=== PATIENT | female | born 1975 | race Caucasian/White ===

== ENCOUNTER 2021-06-24 16:29 | Inpatient (IN) | payer MEDICARE ==
[~2021-06-24] VITALS: Ht 157.5 cm; Wt 143.1 kg
[~2021-06-24 16:29] MED LIST: ALBU2.5V8; ALBU2.5V8 IH; BENZ100C PO; CETI10TA16 PO; ESTR0.45 PO; FERR325C PO; FLUO10TA; FLUO20TA11 PO; FLUT16SP21; FLUT1DIS3 IH; FLUT9.9S NS; FURO20TA3 PO; GLUC1KIT IM; INSU100C4 SQ; INSU100I13 SQ; INSU100V31; INSU100V8; IPRA3AMP29 NEB; LEVO500T59 PO; MONT10TA80 PO; NYST15CR2 TOP; NYST60PO TP; PRED-220; PRED-220 PO; PRED20TA PO; PRED5TAB PO; RANI150C PO; RANI150T2 PO; TERB30CR TP
[2021-06-24] MEDS ORDERED: IV NORMAL SALINE 1,000ML 1,000 ML IV ONE ×2 (18:15→18:45)
--- NOTE | 2021-06-24 18:39 | RAD ---
EXAM: AP View of the chest DATE: 06/24/2021 6:18 PM INDICATION: Reason: drowziness / Spl. Instructions: / History: COMPARISON: No Prior FINDINGS: The heart is not enlarged. Diffuse bilateral parenchymal airspace opacities likely volume loss. Pneumonia or pulmonary edema. Tr nicky pleural effusions. No pneumothorax. IMPRESSION: 1. Diffuse bilateral perihilar and lung base airspace opacities and trace pleural effusions may be s een with pulmonary edema or multifocal consolidative process, such as pneumonia. Electronically signed by: Krishan De Anda MD (06/24/2021 6:36 PM) [facility]
[2021-06-24 18:43] LABS: BASO # 0.1 x10^3/uL (0.0-0.2); BASO % 1 % (0-3); EOS % 0 % (0-3); LYMPH # 0.8 x10^3/uL (1.0-4.8); LYMPH % 9 % (24-48); MEAN CORPUSCULAR HEMOGLOBIN 32 pg (25-35); MEAN CORPUSCULAR HGB CONC 33 g/dL (31-37); MEAN CORPUSCULAR VOLUME 97 fL (79-100); MONO # 0.9 x10^3/uL (0.0-1.1); MONO % 10 % (0-9); NEUT # 7.5 x10^3uL (1.8-7.7); NEUT % 81 % (31-73); PLATELET COUNT 284 x10^3/uL (140-400); RED CELL DISTRIBUTION WIDTH 15.5 % (11.5-14.5); WHITE BLOOD COUNT 9.3 x10^3/uL (4.0-11.0)
[2021-06-24 18:45] LABS: CALCIUM 8.7 mg/dL (8.5-10.1); CREATININE 0.8 mg/dL (0.6-1.0); GFR 77.2; POTASSIUM 4.4 mmol/L (3.5-5.1)
[2021-06-24 18:52] LABS: ALBUMIN 3.1 g/dL (3.4-5.0); ALBUMIN/GLOBULIN RATIO 0.8 (1.0-1.7); MAGNESIUM 2.2 mg/dL (1.8-2.4); TOTAL BILIRUBIN 0.6 mg/dL (0.2-1.0); TOTAL PROTEIN 7.2 g/dL (6.4-8.2)
--- NOTE | 2021-06-24 19:24 | PHYS DOC ---
Past History Past Medical History: Asthma, Diabetes, Other Additional Past Medical Histor: DM I, LYMPHEDEMA, DOWNS SYNDROME, CHROHNS, CELIAC DISEASE (TAMMY GORDON APRN) Past Surgical History: Hysterectomy, Oophorectomy (TAMMY GORDON APRN) Smoking: Non-smoker Alcohol Use: None Drug Use: None (TAMMY GORDON APRN) General Adult EDM: Chief Complaint: MULTIPLE COMPLAINTS HPI: HPI: Patient is a 46-year-old female presents with fever, cough, drowsiness since this morning. Mom states "I have not been able to get her to eat much all day because she is too sleepy". "She does have asthma and she has been coughing a lot more lately today". Mom reports highest fever at home was 101. Patient is alert and oriented. Denying pain, shortness of breath. Denies urinary sy mptoms. History of asthma, diabetes, Down syndrome (TAMMY GORDON APRN) Review of Systems: Review of Systems: Constitutional: Denies fever or chills Eyes: Denies change in visual acuity HENT: Denies nasal congestion or sore throat Respiratory: Denies cough or shortness of breath Cardiovascular: Denies chest pain or edema GI: Denies abdominal pain, nausea, vomiting, bloody stools or diarrhea : Denies dysuria Musculoskeletal: Denies back pain or joint pain Integument: Denies rash Neurologic: Denies headache, focal weakness or sensory changes Endocrine: Denies polyuria or polydipsia Lymphatic: Denies swollen glands Psychiatric: Denies depression or anxiety (TAMMY GORDON APRN) Current Medications: Current Meds: Current Medications Medications (Trade) Dose Ordered Sig/Harlan Start Time Stop Time Status Last Admin Dose Admin Sodium Chloride 1,000 ml @ 1,000 mls/hr 1X ONCE 06/24/21 18:45 06/24/21 19:44 06/24/21 18:45 1,000 MLS/HR (TAMMY GORDON APRN) Allergies: Allergies: Allergies Coded Allergies Type Severity Reaction Last Updated Verified Sulfa (Sulfonamide Antibiotics) Allergy Intermediate 05/02/14 Yes codeine Allergy Intermediate 05/02/14 Yes strawberry Allergy Intermediate 05/02/14 Yes adhesive Allergy Unknown 06/24/21 Yes gluten Allergy Unknown 06/24/21 Yes (GORDON,TAMMY [employer]) Physical Exam: PE: Constitutional: Well developed, well nourished, no acute distress, drowsiness HENT: Normocephalic, atraumatic, bilateral external ears normal, oropharynx moist, no oral exudates, nose normal. [] Eyes: PERRLA, EOMI, conjunctiva normal, no discharge. [] Neck: Normal range of motion, no tenderness, supple, no stridor. [] Cardiovascular:Heart rate regular rhythm, no murmur [] Lungs & Thorax: Bilateral breath sounds clear to auscultation [] Abdomen: Bowel sounds normal, soft, no tenderness, no masses, no pulsatile masses. [] Skin: Warm, dry, no erythema, no rash. [] Back: No tenderness, no CVA tenderness. [] Extremities: No tenderness, no cyanosis, no clubbing, ROM intact, no edema. [] Neurologic: Alert and oriented X 3, normal motor function, normal sensory function, no focal deficits noted. [] Psychologic: Affect normal, judgement normal, mood normal. [] (TAMMY GORDON P[employer]ER) Current Patient Data: Labs: Laboratory Tests Test 06/24/21 18:13 06/24/21 18:20 Glucose (Fingerstick) 349 mg/dL (70-99) H White Blood Count 9.3 x10^3/uL (4.0-11.0) Red Blood Count 3.70 x10^6/uL (3.50-5.40) Hemoglobin 12.0 g/dL (12.0-15.5) Hematocrit 36.0 % (36.0-47.0) Mean Corpuscular Volume 97 fL (79-100) Mean Corpuscular Hemoglobin 32 pg (25-35) Mean Corpuscular Hemoglobin Concent 33 g/dL (31-37) Red Cell Distribution Width 15.5 % (11.5-14.5) H Platelet Count 284 x10^3/uL (140-400) Neutrophils (%) (Auto) 81 % (31-73) H Lymphocytes (%) (Auto) 9 % (24-48) L Monocytes (%) (Auto) 10 % (0-9) H Eosinophils (%) (Auto) 0 % (0-3) Basophils (%) (Auto) 1 % (0-3) Neutrophils # (Auto) 7.5 x10^3uL (1.8-7.7) Lymphocytes # (Auto) 0.8 x10^3/uL (1.0-4.8) L Monocytes # (Auto) 0.9 x10^3/uL (0.0-1.1) Eosinophils # (Auto) 0.0 x10^3/uL (0.0-0.7) Basophils # (Auto) 0.1 x10^3/uL (0.0-0.2) Sodium Level 134 mmol/L (136-145) L Potassium Level 4.4 mmol/L (3.5-5.1) Chloride Level 97 mmol/L (98-107) L Carbon Dioxide Level 31 mmol/L (21-32) Anion Gap 6 (6-14) Blood Urea Nitrogen 12 mg/dL (7-20) Creatinine 0.8 mg/dL (0.6-1.0) Estimated GFR (Cockcroft-Gault) 77.2 BUN/Creatinine Ratio 15 (6-20) Glucose Level 323 mg/dL (70-99) H Calcium Level 8.7 mg/dL (8.5-10.1) Magnesium Level 2.2 mg/dL (1.8-2.4) Total Bilirubin 0.6 mg/dL (0.2-1.0) Aspartate Amino Transferase (AST) 13 U/L (15-37) L Alanine Aminotransferase (ALT) 22 U/L (14-59) Alkaline Phosphatase 88 U/L (46-116) Total Protein 7.2 g/dL (6.4-8.2) Albumin 3.1 g/dL (3.4-5.0) L Albumin/Globulin Ratio 0.8 (1.0-1.7) L Vital Signs: Vital Signs Date Time Temp Pulse Resp B/P (MAP) Pulse Ox O2 Delivery O2 Flow Rate FiO2 06/24/21 17:50 98.5 75 20 120/75 (90) 84 Room Air (TAMMY GORDON APRN) EKG: EKG: [] (TAMMY GORDON APRN) Radiology/Procedures: Radiology/Procedures: []EXAM: AP View of the chest DATE: 06/24/2021 6:18 PM INDICATION: Reason: drowziness / Spl. Instructions: / History: COMPARISON: No Prior FINDINGS: The heart is not enlarged. Diffuse bilateral parenchymal airspace opacities likely volume loss. Pneumonia or pulmonary edema. Trace pleural effusions. No pneumothorax. IMPRESSION: 1. Diffuse bilateral perihilar and lung base airspace opacities and trace pleural effusions may be seen with pulmonary edema or multifocal consolidative process, such as pneumonia. Electronically signed by: Krishan De Anda MD (06/24/2021 6:36 PM) [facility] (TAMMY GORDON APRN) Heart Score: C/O Chest Pain: No Risk Factors: Risk Factors: DM, Current or recent (<one month) smoker, HTN, HLP, family history of CAD, obesity. Risk Scores: Score 0 - 3: 2.5% MACE over next 6 weeks - Discharge Home Score 4 - 6: 20.3% MACE over next 6 weeks - Admit for Clinical Observation Score 7 - 10: 72.7% MACE over next 6 weeks - Early Invasive Strategies (TAMMY GORDON APRN) Course & Med Decision Making: Course & Med Decision Making Pertinent Labs and Imaging studies reviewed. (See chart for details) [] 46-year-old female presents with fever, cough and drowsiness since this morning. Mom reports patient's been sleeping all day and acting very drowsy. Patient is alert and oriented. Mom does report fever and cough at home. Chest x-ray ordered to rule out pneumonia. Blood sugar was 347. Patient given 2 L NS bolus. Mom states is not abnormal for her blood sugar to be within that range. Denies patient ever being hospitalized for complications of diabetes, or asthma. Patient was placed on 2 L nasal cannula on arrival due to O2 sats mid 80s. After patient was placed on oxygen, O2 sats are mid 90s. Patient does not currently use oxygen at home. Chest x-ray shows pneumonia. WBC 9.3. Patient much more alert after fluids administered. Discussed results with mom. Recommended patient be admitted due to hypoxia and pneumonia. Discussed with Dr. Conklin. Dr. Conklin agreed to admit patient to telemetry. (TAMMY GORDON APRN) Course & Med Decision Making Did not see or evaluate patient. Did not discuss patient with PHARMACY SERVICES REPRESENTATIVE. Agree with PHARMACY SERVICES REPRESENTATIVE's work-up and disposition per note. (JUAN COON MD) Dragon Disclaimer: Dragon Disclaimer: This electronic medical record was generated, in whole or in part, using a voice recognition dictation system. (TAMMY GORDON APRN) Departure Departure: Impression: Primary Impression: Pneumonia Qualified Codes: J18.9 - Pneumonia, unspecified organism Additional Impression: Hypoxia Disposition: ADMITTED INPATIENT Admitting Physician: Ashvin Alberto (TAMMY GORDON APRN) Condition: STABLE Referrals: ASHVIN ALBERTO MD (PCP) TAMMY GORDON APRN Jun 24, 2021 19:23 JUAN COON MD Jun 24, 2021 22:02
[2021-06-24] MEDS ORDERED: DEXAMETHASONE SOD PHOS 10 MG/ML VIAL. IV ONE (20:15)
[2021-06-24] MEDS ORDERED: INSULIN REGULAR 100 UNIT/ML 3ML VIAL. IV ONE (20:15)
[2021-06-24] MEDS ORDERED: cefTRIAXone SODIUM 1 GM VIAL ONE (20:21)
[2021-06-24] MEDS ORDERED: IV NORMAL SALINE 50ML 50 ML ONE (20:21)
--- NOTE | 2021-06-24 21:12 | EKG ---
[address] [address] Test Date: 2021-06-24 Test Time: 20:58:42 Pat Name: ROMEO GALLARDO Department: Room: 119 A Gender: F Multimedia Specialist: [place] : 1975 Requested By: TAMMY GORDON Order Number: [id number] Reading MD: Roc Sun MD Measurements Intervals [place] Rate: 81 P: 62 NC: 136 QRS: 68 QRSD: 74 T: -4 QT: 382 QTc: 444 Interpretive Statements SINUS RHYTHM NON-SPECIFIC ST/T CHANGES Electronically Signed On 06-29-2021 11:48:20 CDT by Roc Sun MD
[2021-06-24 21:16] LABS: COLOR,URINE YELLOW
[2021-06-24 21:17] LABS: BACTERIA,URINE 0 /HPF (0-FEW); BILIRUBIN,URINE NEG (NEG); CLARITY,URINE CLEAR; GLUCOSE,URINE >=1000 mg/dL (NEG); NITRITE,URINE NEG (NEG); RBC,URINE 0 /HPF (0-2); SQUAMOUS EPITHELIAL CELL,UR MOD /LPF; UROBILINOGEN,URINE 0.2 mg/dL (0.2 mg/dL); WBC,URINE 0 /HPF (0-4)
--- NOTE | 2021-06-24 21:48 | NUR ---
The patient, ROMEO GALLARDO, 46 y/o, F admitted by ASHVIN ALBERTO MD, was given written information regarding hospital policies, unit procedures and contact persons. Valuables were checked and logged. Call light in reach. Mom at bedside.
[2021-06-24 22:09] VITALS: BP 123/74
[2021-06-24] MEDS: IV NORMAL SALINE 1,000ML 1,000 ML IV SCH (22:15)
[2021-06-24 22:19] LABS: INFLUENZA A PATIENT NEGATIVE (NEGATIVE); INFLUENZA B PATIENT NEGATIVE (NEGATIVE)
[2021-06-24 23:00] VITALS: BP 126/68
[2021-06-24] MEDS ORDERED: DEXTROSE 50% 25 GM / 50ML DISP.SYRIN. IV PRN (23:00)
[2021-06-24] MEDS ORDERED: AZITHROMYCIN 250 MG TABLET. PO ONE (23:00)
[2021-06-24] MEDS ORDERED: GABA100C6 PO (23:01)
[2021-06-24] MEDS: INSULIN GLARGINE SYRINGE. SQ SCH (23:26)
[2021-06-25 05:00] VITALS: BP 137/78
[2021-06-25] MEDS ORDERED: NON FORMULARY ITEM (Insulin Aspart (Novolog) 0 UNIT) SQ SCH (07:30)
[2021-06-25] MEDS: INSULIN LISPRO 300 UNITS/3 ML VIAL. SQ SCH ×3 (08:14→17:00)
[2021-06-25] MEDS: FERROUS SULFATE 325 MG TABLET. PO SCH (08:16)
[2021-06-25] MEDS: FLUTICASONE/VILANTEROL 200/25 INHALER. INH SCH (08:53)
[2021-06-25] MEDS: FLUTICASONE 50MCG/NASAL SPRAY 16GM BOTTLE. NS SCH (08:54)
[2021-06-25] MEDS: LACTOBACILLUS RHAMNOSUS GG 1 CAPSULE. PO SCH ×2 (08:55→20:51)
[2021-06-25] MEDS: MONTELUKAST 10 MG TABLET. PO SCH (08:56)
[2021-06-25] MEDS: FAMOTIDINE 20 MG TABLET PO SCH ×2 (08:56→20:51)
[2021-06-25] MEDS: GABAPENTIN 100 MG CAPSULE. PO SCH (08:57)
[2021-06-25] MEDS: ESTROGENS, CONJUGATED 0.3 MG TABLET PO SCH (08:57)
[2021-06-25] MEDS: NYSTATIN TOPICAL POWDER 15GM BOTTLE. TP SCH ×2 (08:57→20:51)
[2021-06-25] MEDS: NYSTATIN/TRIAMCIN TOPICAL CREAM 15GM TUBE. TP SCH ×2 (08:57→20:51)
[2021-06-25] MEDS ORDERED: AZITHROMYCIN 250 MG TABLET. PO SCH (09:00)
[2021-06-25] MEDS ORDERED: FLU VACC QUAD 21-22 (6MOS+) PF 0.5 ML SYRINGE. VAX IM ONE (09:00)
[2021-06-25] MEDS: ALBUTEROL SULFATE 8GM INHALER. INH PRN (09:02)
[2021-06-25] MEDS ORDERED: PIP/TAZO PER PHARMACY MC PRN (09:15)
[2021-06-25] MEDS: INSULIN GLARGINE SYRINGE. SQ SCH ×2 (09:26→20:52)
[2021-06-25] MEDS ORDERED: ENOXAPARIN 40 MG/0.4 ML SYRINGE. SQ SCH (09:30)
[2021-06-25 10:41] VITALS: BP 140/67
[2021-06-25] MEDS: IV NORMAL SALINE 1,000ML 1,000 ML IV SCH (11:07)
[2021-06-25] MEDS: PIPERACILLIN/TAZOBACTAM 3.375 GM in IV NORMAL SALINE 50ML 50 ML IV SCH ×2 (11:07→17:31)
[2021-06-25] MEDS ORDERED: INSULIN LISPRO 300 UNITS/3 ML VIAL. SQ SCH ×3 (12:20→18:00)
[2021-06-25] MEDS: ENOXAPARIN ** NOTE DOSE ** SYRINGE SQ SCH ×2 (13:27→20:52)
[2021-06-25] MEDS: VANCOMYCIN 2 GM in IV NORMAL SALINE 500ML 500 ML IV SCH ×2 (13:28→22:21)
[2021-06-25 14:53] VITALS: BP 133/72
--- NOTE | 2021-06-25 17:56 | NUR ---
pt received extra insulin for lunch with fsbs 389 15units extra with 9 of sliding scale. fsbs was 379 at dinner time and pt received 20 units total per pts mom. pt did not recieve the sliding scale of 9 due to pt maybe being too low later. Dr. Jackson called regarding both fsbs results. pt also passed nursing bedside swallow and speech bedside swallow.
[2021-06-25 19:00] VITALS: BP 108/62
[2021-06-25 23:17] VITALS: BP 117/68
--- NOTE | 2021-06-26 00:12 | PN ---
SUBJECTIVE: A 46-year-old female in with pneumonia and dehydration, resting fairly comfortably. Says she feels better. She is receiving IV antibiotic therapy. Blood sugars are out of control. She is getting low-dose steroids to help her with her breathing; however, she is still having difficulty with that, but we are adjusting her insulin accordingly. The patient is with her mother as the patient has Down syndrome. OBJECTIVE: VITAL SIGNS: Blood pressure 132/77, respiratory rate 18, pulse 70, afebrile. Presently on 3 liters, however, needed to keep her up in the mid 90s. GENERAL: Otherwise, alert and oriented. LUNGS: Diminished, primarily in the left lower lobe and left upper lobe. CARDIOVASCULAR: Regular sinus rhythm. ABDOMEN: Soft, protuberant. EXTREMITIES: No clubbing, cyanosis or edema. NEUROLOGIC: Intact. IMPRESSION: Left upper lobe pneumonia, acute respiratory distress, dehydration, Down syndrome. PLAN: As above. CLAIRE/MARILU/SHAWANDA DR: Felecia TID: [id number]
[2021-06-26 02:16] LABS: HEMOGLOBIN A1C 8.9 % (4.8-5.6)
[2021-06-26 05:00] VITALS: BP 106/68
[2021-06-26] MEDS: PIPERACILLIN/TAZOBACTAM 3.375 GM in IV NORMAL SALINE 50ML 50 ML IV SCH ×4 (06:07→17:46)
[2021-06-26 06:56] LABS: CALCIUM 8.4 mg/dL (8.5-10.1); CREATININE 0.9 mg/dL (0.6-1.0); GFR 67.4; POTASSIUM 3.9 mmol/L (3.5-5.1)
[2021-06-26] MEDS: VANCOMYCIN PER PHARMACY MC PRN ×2 (07:43→15:44)
[2021-06-26] MEDS: INSULIN LISPRO 300 UNITS/3 ML VIAL. SQ SCH ×3 (08:00→17:29)
[2021-06-26] MEDS: NYSTATIN/TRIAMCIN TOPICAL CREAM 15GM TUBE. TP SCH ×2 (08:14→21:00)
[2021-06-26] MEDS: NYSTATIN TOPICAL POWDER 15GM BOTTLE. TP SCH ×2 (08:14→21:00)
[2021-06-26] MEDS: ESTROGENS, CONJUGATED 0.3 MG TABLET PO SCH (08:15)
[2021-06-26] MEDS: GABAPENTIN 100 MG CAPSULE. PO SCH (08:16)
[2021-06-26] MEDS: FAMOTIDINE 20 MG TABLET PO SCH ×2 (08:16→22:19)
[2021-06-26] MEDS: MONTELUKAST 10 MG TABLET. PO SCH (08:16)
[2021-06-26] MEDS: LACTOBACILLUS RHAMNOSUS GG 1 CAPSULE. PO SCH ×2 (08:16→22:19)
[2021-06-26] MEDS: ENOXAPARIN ** NOTE DOSE ** SYRINGE SQ SCH ×2 (08:16→22:21)
[2021-06-26] MEDS: FERROUS SULFATE 325 MG TABLET. PO SCH (08:17)
[2021-06-26] MEDS: FLUTICASONE 50MCG/NASAL SPRAY 16GM BOTTLE. NS SCH (08:18)
[2021-06-26] MEDS: FLUTICASONE/VILANTEROL 200/25 INHALER. INH SCH (08:21)
[2021-06-26] MEDS: INSULIN GLARGINE SYRINGE. SQ SCH ×2 (09:18→22:38)
[2021-06-26 10:59] LABS: VANC TR 22.6 mcg/mL (10.0-20.0)
[2021-06-26] MEDS: VANCOMYCIN 2 GM in IV NORMAL SALINE 500ML 500 ML IV SCH (11:00)
--- NOTE | 2021-06-26 11:22 | PN ---
SUBJECTIVE: A 46-year-old female in with left upper lobe pneumonia, acute respiratory failure. The patient is resting comfortably in a fairly restful night, has some coughing jags, is still on 3 liters per nasal cannula. Otherwise, the mother says she is resting comfortably and the patient herself does not really have anything of a major concern right now. OBJECTIVE: VITAL SIGNS: Blood pressure 110/70, respiration 18, pulse 60, afebrile, 3 liters at 96. GENERAL: The patient is alert and oriented to baseline. LUNGS: Diminished, but basically clear. CARDIOVASCULAR: Stable. ABDOMEN: Protuberant, soft, nontender. EXTREMITIES: No clubbing, cyanosis, nor edema. NEUROLOGIC: The patient is stable. We will repeat the chest x-ray in the morning and then determine further IV or p.o. antibiotics. Her sugars have come down with the adjustment of her insulins, so as to spread them out a little bit more to help her gain that under control there. IMPRESSION: Community-acquired left upper lobe pneumonia, type 2 diabetes, morbid obesity, dehydration, Down syndrome. WHITNEY DR: Felecia TID: [id number]
[2021-06-26 11:38] VITALS: BP 118/74
[2021-06-26] MEDS ORDERED: NITROGLYCERIN SUBLINGUAL 0.4 MG BOTTLE OF 25. SL PRN (13:00)
[2021-06-26] MEDS ORDERED: FUROSEMIDE 20 MG/2 ML VIAL IVP ONE (13:00)
--- NOTE | 2021-06-26 13:42 | NUR ---
Nursing note PT complained of chest pain and SOB, order put in for EKG, Echo, Troponin and medication administered to relieve swelling. PT in bed.
--- NOTE | 2021-06-26 15:46 | NUR ---
Pharmacy Vancomycin Dosing Note S:Consulted to monitor and dose vancomycin started 06/25/21. O:ROMEO GALLARDO is a 46 year old F with CAP Height: 5 feet, 2 inches Weight: 140.0 kg Adjusted Body Weight: 86 kg Dosing Weight: Adjusted Other Antibiotics: Zosyn 3.375gm q6h LABS: Last BUN: 17 Last Creatinine: 0.9 Creatinine Clearance: 106ml/min Last WBC: 9.3 Drug Levels: Last Trough level: 22.6 on 06/26/21 at 1030 - drawn before steady state, two doses were given 9 hours apart rather than 12. Last dose given 06/25/21 at 2230 Vancomycin Dosing: Loading Dose: 2000 mg x1 Dosing Weight: Adjusted Target Trough: 10-20 A: Adjust to adjusted body weight, check trough before 3rd dose tomorrow. P: 1. Change Vancomycin 1250 mg IV q8h 2. Follow up Trough level on 06/27/21 at 1430 3. Pharmacy will continue to monitor, follow and adjust therapy as needed. SHANNAN NG, 06/26/21 [id number]
[2021-06-26 15:59] VITALS: BP 113/72
--- NOTE | 2021-06-26 18:22 | NUR ---
Nursing note Assisted PT to the bathroom, reports no pain, complains of SOB. PT in bed placed on nasal canula. medication administered, no other needs.
[2021-06-26 19:00] VITALS: BP 120/74
[2021-06-26] MEDS: VANCOMYCIN 1.25 GM in IV NORMAL SALINE 250ML 250 ML IV SCH (23:24)
[2021-06-26 23:33] VITALS: BP 99/64
[2021-06-27] MEDS: PIPERACILLIN/TAZOBACTAM 3.375 GM in IV NORMAL SALINE 50ML 50 ML IV SCH ×4 (05:31→18:00)
[2021-06-27 05:56] VITALS: BP 112/71
[2021-06-27] MEDS: VANCOMYCIN 1.25 GM in IV NORMAL SALINE 250ML 250 ML IV SCH ×2 (07:41→15:00)
[2021-06-27] MEDS: LACTOBACILLUS RHAMNOSUS GG 1 CAPSULE. PO SCH ×2 (09:00→21:25)
[2021-06-27] MEDS: FAMOTIDINE 20 MG TABLET PO SCH ×2 (09:17→21:25)
[2021-06-27] MEDS: FERROUS SULFATE 325 MG TABLET. PO SCH (09:17)
[2021-06-27] MEDS: GABAPENTIN 100 MG CAPSULE. PO SCH (09:18)
[2021-06-27] MEDS: MONTELUKAST 10 MG TABLET. PO SCH (09:18)
[2021-06-27] MEDS: FLUTICASONE/VILANTEROL 200/25 INHALER. INH SCH (09:19)
[2021-06-27] MEDS: FLUTICASONE 50MCG/NASAL SPRAY 16GM BOTTLE. NS SCH (09:19)
[2021-06-27] MEDS: ESTROGENS, CONJUGATED 0.3 MG TABLET PO SCH (09:21)
[2021-06-27] MEDS: NYSTATIN/TRIAMCIN TOPICAL CREAM 15GM TUBE. TP SCH ×2 (09:26→21:00)
[2021-06-27] MEDS: ENOXAPARIN ** NOTE DOSE ** SYRINGE SQ SCH ×2 (09:26→21:24)
[2021-06-27] MEDS: NYSTATIN TOPICAL POWDER 15GM BOTTLE. TP SCH ×2 (09:27→21:00)
[2021-06-27] MEDS ORDERED: SODIUM CHLORIDE 0.65% NASAL SPRAY 45ML BOTTLE. NS PRN (10:00)
[2021-06-27] MEDS: CETIRIZINE HCL 10 MG TABLET PO SCH (10:00)
[2021-06-27] MEDS: FUROSEMIDE 40 MG TABLET PO SCH ×2 (10:00→10:04)
[2021-06-27] MEDS: methylPREDNISolone SOD SUCC PF 40 MG/ML VIAL. IV SCH ×2 (10:00→21:24)
[2021-06-27] MEDS: INSULIN GLARGINE SYRINGE. SQ SCH ×2 (10:01→21:24)
[2021-06-27] MEDS: INSULIN LISPRO 300 UNITS/3 ML VIAL. SQ SCH ×3 (10:03→17:00)
[2021-06-27] MEDS ORDERED: ONDANSETRON ODT 4 MG TAB.RAPDIS PO PRN (11:15)
--- NOTE | 2021-06-27 11:24 | RAD ---
AP chest. HISTORY: Pneumonia AP view was taken of the chest. There are persistent hazy bilateral infiltrates. Heart is normal in s ize. There is no pleural effusion. Patient's taken a mildly better inspiration compared to the prior study without other definite change. IMPRESSION: 1. Bilateral hazy infiltrates with little change. Electronically signed by: Abelardo Morales MD (06/27/2021 11:22 AM) [facility]
[2021-06-27 11:25] VITALS: BP 148/84
--- NOTE | 2021-06-27 11:52 | PN ---
SUBJECTIVE: A 46-year-old female, had bilateral lobe pneumonia, sepsis, acute respiratory failure, doing a little better this morning. The patient is being accompanied by her mother because of her severe handicap nature. The patient is COVID negative. The patient has a repeat chest x-ray, showed a continued consolidation of the right lower lobe, although the left upper lobe infiltrative process has been somewhat ameliorated. OBJECTIVE: VITAL SIGNS: Blood pressure 112/70, pulse 70, respiratory rate 16, afebrile, 2 liters at 96. GENERAL: The patient is alert and oriented. LUNGS: Diminished, primarily in the right lower lobe, poor movement of air. The left lung shows clearing, but rhonchi. CARDIOVASCULAR: Regular sinus rhythm. ABDOMEN: Soft, nontender. NEUROLOGIC: The patient has very labile. We will continue to monitor her on that. Otherwise, she continues on her methylprednisolone, vancomycin, Zosyn and breathing treatments and will continue to be monitored carefully on that. Otherwise, patient is making progress. She is tearful probably some form of depression as well. LABORATORY DATA: Blood sugars are under better control in the low 140s and electrolytes have been basically stable. IMPRESSION: Bilateral lobe pneumonia, sepsis, acute respiratory failure, dehydration, Down syndrome. Continue on present drug regimen, type 2 diabetes, poorly controlled, A1c 8.9, moderate protein malnutrition. TRISTEN DR: Felecia TID: [id number]
[2021-06-27] MEDS: IPRATRPIUM/ALBUTEROL 0.5/2.5MG 3 ML NEBU. NEB SCH ×3 (12:00→20:45)
[2021-06-27 15:00] VITALS: BP 157/87
[2021-06-27 15:09] LABS: VANC TR 49.1 mcg/mL (10.0-20.0)
[2021-06-27 15:35] LABS: CALCIUM 8.7 mg/dL (8.5-10.1); CREATININE 1.4 mg/dL (0.6-1.0); GFR 40.5; POTASSIUM 4.6 mmol/L (3.5-5.1)
--- NOTE | 2021-06-27 17:40 | NUR ---
pts mom is in the room with the pt at all times and will tell what insulin pt should recieve if they do not feel like it is enough or too much.
[2021-06-27] MEDS ORDERED: INSULIN LISPRO 300 UNITS/3 ML VIAL. SQ ONE (18:00)
[2021-06-27 19:10] VITALS: BP 123/74
[2021-06-27] MEDS: diphenhydrAMINE HCL 25 MG CAPSULE PO SCH (21:25)
--- NOTE | 2021-06-27 22:42 | NUR ---
Vancomycin trough scheduled and drawn to process. Order for trough and infusion was discontinued. Dr. Jackson contacted to confirm care plan. Trough reordered to process. Infusion to be held and not reordered at this time. Will continue to monitor.
[2021-06-27 22:50] LABS: VANC TR 28.3 mcg/mL (10.0-20.0)
[2021-06-28] MEDS: PIPERACILLIN/TAZOBACTAM 3.375 GM in IV NORMAL SALINE 50ML 50 ML IV SCH ×5 (00:08→23:49)
[2021-06-28 00:47] VITALS: BP 132/75
[2021-06-28] MEDS: IPRATRPIUM/ALBUTEROL 0.5/2.5MG 3 ML NEBU. NEB SCH ×4 (05:48→20:23)
[2021-06-28 06:14] VITALS: BP 115/77
[2021-06-28 07:55] LABS: BASO % 0 % (0-3); CALCIUM 8.6 mg/dL (8.5-10.1); CREATININE 1.3 mg/dL (0.6-1.0); EOS % 0 % (0-3); GFR 44.1; HEMATOCRIT 34.8 % (36.0-47.0); HEMOGLOBIN 11.4 g/dL (12.0-15.5); LYMPH # 0.3 x10^3/uL (1.0-4.8); LYMPH % 5 % (24-48); MEAN CORPUSCULAR HEMOGLOBIN 32 pg (25-35); MEAN CORPUSCULAR HGB CONC 33 g/dL (31-37); MEAN CORPUSCULAR VOLUME 98 fL (79-100); MONO # 0.2 x10^3/uL (0.0-1.1); MONO % 3 % (0-9); NEUT # 6.6 x10^3uL (1.8-7.7); NEUT % 92 % (31-73); PLATELET COUNT 291 x10^3/uL (140-400); POTASSIUM 4.5 mmol/L (3.5-5.1); RED BLOOD COUNT 3.57 x10^6/uL (3.50-5.40); RED CELL DISTRIBUTION WIDTH 15.1 % (11.5-14.5); WHITE BLOOD COUNT 7.2 x10^3/uL (4.0-11.0)
[2021-06-28] MEDS: INSULIN LISPRO 300 UNITS/3 ML VIAL. SQ SCH ×4 (08:00→17:02)
[2021-06-28] MEDS: FLUTICASONE/VILANTEROL 200/25 INHALER. INH SCH (08:30)
[2021-06-28] MEDS: ALBUTEROL SULFATE 8GM INHALER. INH PRN (08:30)
[2021-06-28] MEDS: FLUTICASONE 50MCG/NASAL SPRAY 16GM BOTTLE. NS SCH (08:30)
[2021-06-28] MEDS: NYSTATIN/TRIAMCIN TOPICAL CREAM 15GM TUBE. TP SCH ×2 (08:30→20:23)
[2021-06-28] MEDS: NYSTATIN TOPICAL POWDER 15GM BOTTLE. TP SCH ×2 (08:31→20:24)
[2021-06-28] MEDS: ENOXAPARIN ** NOTE DOSE ** SYRINGE SQ SCH ×2 (08:31→20:23)
[2021-06-28] MEDS: FERROUS SULFATE 325 MG TABLET. PO SCH (08:32)
[2021-06-28] MEDS: GABAPENTIN 100 MG CAPSULE. PO SCH (08:33)
[2021-06-28] MEDS: FUROSEMIDE 40 MG TABLET PO SCH (08:33)
[2021-06-28] MEDS: LACTOBACILLUS RHAMNOSUS GG 1 CAPSULE. PO SCH ×2 (08:33→20:23)
[2021-06-28] MEDS: FAMOTIDINE 20 MG TABLET PO SCH ×2 (08:33→20:23)
[2021-06-28] MEDS: CETIRIZINE HCL 10 MG TABLET PO SCH (08:33)
[2021-06-28] MEDS: MONTELUKAST 10 MG TABLET. PO SCH (08:33)
[2021-06-28] MEDS: ESTROGENS, CONJUGATED 0.3 MG TABLET PO SCH (08:37)
[2021-06-28] MEDS: INSULIN GLARGINE SYRINGE. SQ SCH ×2 (10:48→20:59)
[2021-06-28] MEDS: methylPREDNISolone SOD SUCC PF 40 MG/ML VIAL. IV SCH ×2 (10:49→20:24)
[2021-06-28] MEDS ORDERED: INSULIN LISPRO 300 UNITS/3 ML VIAL. SQ ONE (11:30)
[2021-06-28 12:56] VITALS: BP 125/77
[2021-06-28 15:30] VITALS: BP 138/73
[2021-06-28 19:54] VITALS: BP 109/50
--- NOTE | 2021-06-28 19:55 | PN ---
SUBJECTIVE: A 46-year-old female in with bilateral lobe pneumonia. The patient seems to be making some progress, although her oxygen saturation, without oxygen on, dropped down to 86%. The patient still has coarse breath sounds, light. OBJECTIVE: VITAL SIGNS: Her blood pressure is 115/77, respiratory rate 20, pulse 60, afebrile. GENERAL: She is at 2.5 liters at 95%, without it she drops as noted. Otherwise, she is alert, baseline there. The patient has good color to her face. LUNGS: The patient's lungs however show coarse breath sounds and wheezing noted throughout all lobes, although markedly improved from where she was when she first came in. We will repeat a chest x-ray in the morning. IMPRESSION: Pneumonia, community-acquired; Down syndrome patient; acute respiratory failure; type 2 diabetes; morbid obesity; dehydration. PLAN: Continue with IV antibiotic therapy. Repeat x-ray in the morning. Continue with breathing treatments as indicated. MATHEW/RADHA DR: Felecia TID: [id number]
[2021-06-28] MEDS: diphenhydrAMINE HCL 25 MG CAPSULE PO SCH (20:23)
[2021-06-28 22:42] VITALS: BP 131/73
--- NOTE | 2021-06-29 04:39 | NUR ---
PT incontinent of bowel and bladder d/t urgency. PT cleaned and clothes replaced.
[2021-06-29] MEDS: IPRATRPIUM/ALBUTEROL 0.5/2.5MG 3 ML NEBU. NEB SCH ×4 (05:42→20:04)
[2021-06-29] MEDS: PIPERACILLIN/TAZOBACTAM 3.375 GM in IV NORMAL SALINE 50ML 50 ML IV SCH ×3 (05:52→17:34)
[2021-06-29 06:13] VITALS: BP 127/66
[2021-06-29] MEDS: ESTROGENS, CONJUGATED 0.3 MG TABLET PO SCH (07:36)
[2021-06-29] MEDS: FERROUS SULFATE 325 MG TABLET. PO SCH (07:36)
[2021-06-29] MEDS: MONTELUKAST 10 MG TABLET. PO SCH (07:36)
[2021-06-29] MEDS: CETIRIZINE HCL 10 MG TABLET PO SCH (07:36)
[2021-06-29] MEDS: FUROSEMIDE 40 MG TABLET PO SCH (07:36)
[2021-06-29] MEDS: FAMOTIDINE 20 MG TABLET PO SCH ×2 (07:37→21:16)
[2021-06-29] MEDS: methylPREDNISolone SOD SUCC PF 40 MG/ML VIAL. IV SCH ×2 (07:37→21:16)
[2021-06-29] MEDS: GABAPENTIN 100 MG CAPSULE. PO SCH (07:37)
[2021-06-29] MEDS: LACTOBACILLUS RHAMNOSUS GG 1 CAPSULE. PO SCH ×2 (07:37→21:16)
[2021-06-29] MEDS: ENOXAPARIN ** NOTE DOSE ** SYRINGE SQ SCH ×2 (07:38→21:16)
[2021-06-29] MEDS: FLUTICASONE 50MCG/NASAL SPRAY 16GM BOTTLE. NS SCH (07:39)
[2021-06-29] MEDS: NYSTATIN/TRIAMCIN TOPICAL CREAM 15GM TUBE. TP SCH ×2 (07:39→21:00)
[2021-06-29] MEDS: FLUTICASONE/VILANTEROL 200/25 INHALER. INH SCH (07:39)
[2021-06-29] MEDS: NYSTATIN TOPICAL POWDER 15GM BOTTLE. TP SCH ×2 (07:40→21:00)
[2021-06-29] MEDS: INSULIN LISPRO 300 UNITS/3 ML VIAL. SQ SCH ×3 (08:30→17:31)
[2021-06-29] MEDS: INSULIN GLARGINE SYRINGE. SQ SCH ×2 (09:42→21:18)
[2021-06-29] MEDS: glipiZIDE 5 MG TABLET PO SCH ×2 (09:43→16:47)
--- NOTE | 2021-06-29 10:21 | RAD ---
EXAM: Chest, 2 views. HISTORY: Pneumonia. COMPARISON: 06/27/2021 FINDINGS: 2 views of the chest are obtained. There has been slight interval decrease in diffuse inter stitial infiltrate. There is no consolidation, pleural infusion or pneumothorax. The heart is stable in size. IMPRESSION: Slight interval decrease in diffuse interstitial infiltrate. Electronically signed by: Ebonie Perez MD (06/29/2021 10:19 AM) [id number]
[2021-06-29 11:50] VITALS: BP 128/72
[2021-06-29] MEDS: LEVOTHYROXINE 75 MCG TABLET PO SCH (12:46)
[2021-06-29] MEDS ORDERED: INSULIN LISPRO 300 UNITS/3 ML VIAL. SQ SCH (13:00)
[2021-06-29] MEDS ORDERED: LOPERAMIDE 2 MG CAPSULE PO PRN (13:00)
[2021-06-29] MEDS ORDERED: INSULIN LISPRO 300 UNITS/3 ML VIAL. SQ ONE ×2 (13:15→17:30)
[2021-06-29 15:52] VITALS: BP 150/72
[2021-06-29 19:20] VITALS: BP 142/87
[2021-06-29] MEDS: diphenhydrAMINE HCL 25 MG CAPSULE PO SCH (21:16)
--- NOTE | 2021-06-29 22:50 | PN ---
SUBJECTIVE: The patient is in with pneumonia, community acquired. The patient is resting comfortably, still having some trouble breathing, requiring oxygen. OBJECTIVE: VITAL SIGNS: The patient's blood pressure 127/66, respirations 16, pulse 80, afebrile. She is still on 2 liters at 97. The patient otherwise needs a 6-minute walk. Talked to the mother, a very caring mother. LUNGS: Diminished except in the bases. Coarse breath sounds. Chest x-ray pending. CARDIOVASCULAR: Regular sinus rhythm. ABDOMEN: Soft, protuberant. EXTREMITIES: No clubbing, cyanosis or edema. NEUROLOGIC: Intact. We will go ahead and continue with present drug regimen. Repeat chest x-ray. Hopefully, get some PT, OT on her and hopefully ready for discharge here soon. IMPRESSION: Pneumonia; exacerbation of acute respiratory distress; morbid obesity; Down syndrome; dehydration; type 2 diabetes, under poor control; moderate protein malnutrition. CLAIRE/CARINA/RADHA DR: Felecia TID: [id number]
[2021-06-30] MEDS: PIPERACILLIN/TAZOBACTAM 3.375 GM in IV NORMAL SALINE 50ML 50 ML IV SCH ×2 (00:12→06:10)
[2021-06-30] MEDS: IPRATRPIUM/ALBUTEROL 0.5/2.5MG 3 ML NEBU. NEB SCH ×2 (05:05→09:19)
[2021-06-30] MEDS: LEVOTHYROXINE 75 MCG TABLET PO SCH (06:00)
[2021-06-30 06:25] VITALS: BP 111/75
[2021-06-30] MEDS: INSULIN LISPRO 300 UNITS/3 ML VIAL. SQ SCH (08:26)
[2021-06-30] MEDS: ENOXAPARIN ** NOTE DOSE ** SYRINGE SQ SCH (08:28)
[2021-06-30] MEDS: methylPREDNISolone SOD SUCC PF 40 MG/ML VIAL. IV SCH (08:28)
[2021-06-30] MEDS: MONTELUKAST 10 MG TABLET. PO SCH (08:33)
[2021-06-30] MEDS: FERROUS SULFATE 325 MG TABLET. PO SCH (08:33)
[2021-06-30] MEDS: FAMOTIDINE 20 MG TABLET PO SCH (08:33)
[2021-06-30] MEDS: GABAPENTIN 100 MG CAPSULE. PO SCH (08:33)
[2021-06-30] MEDS: glipiZIDE 5 MG TABLET PO SCH (08:33)
[2021-06-30] MEDS: LACTOBACILLUS RHAMNOSUS GG 1 CAPSULE. PO SCH (08:33)
[2021-06-30] MEDS: FUROSEMIDE 40 MG TABLET PO SCH (08:34)
[2021-06-30] MEDS: CETIRIZINE HCL 10 MG TABLET PO SCH (08:34)
[2021-06-30] MEDS: FLUTICASONE 50MCG/NASAL SPRAY 16GM BOTTLE. NS SCH (08:41)
[2021-06-30] MEDS: FLUTICASONE/VILANTEROL 200/25 INHALER. INH SCH (08:41)
[2021-06-30] MEDS: NYSTATIN/TRIAMCIN TOPICAL CREAM 15GM TUBE. TP SCH (08:42)
[2021-06-30] MEDS ORDERED: LEVO75TA PO (09:15)
[2021-06-30] MEDS ORDERED: GLIP5TAB10 PO (09:15)
[2021-06-30] MEDS ORDERED: PRED-220 PO (09:15)
[2021-06-30] MEDS ORDERED: FURO40TA4 PO (09:15)
[2021-06-30] MEDS ORDERED: IPRA3AMP29 NEB (09:15)
[2021-06-30] MEDS ORDERED: DOXY100T PO (09:15)
[2021-06-30] MEDS: ESTROGENS, CONJUGATED 0.3 MG TABLET PO SCH (10:04)
[2021-06-30] MEDS: INSULIN GLARGINE SYRINGE. SQ SCH (10:11)
--- NOTE | 2021-06-30 10:13 | CARD ---
MR#: [id number] Date of Study: 06/30/2021 Ordering Physician: ASHVIN ALBERTO, Referring Physician: ASHVIN ALBERTO, Tech: Erwin Ellison [facility] APPROVED REPORT EXAM: Two-dimensional and M-mode echocardiogram with Doppler and color Doppler. Other Information Quality : FairHR: 49bpm Rhythm : BradycardiaTechnically limited study due to body habitus. INDICATION Chest Pain Down Syndrome RISK FACTORS Obesity Diabetes Down Syndrome 2D DIMENSIONS Left Atrium(2D)4.0 (1.6-4.0cm)IVSd1.0 (0.7-1.1cm) Aortic Root(2D)2.7 (2.0-3.7cm)LVDd4.7 (3.9-5.9cm) PWd1.1 (0.7-1.1cm)LVDs3.2 (2.5-4.0cm) FS (%) 32.1 %SV60.8 ml LVEF(%)60.3 (>50%) Aortic Valve AoV Peak Jose J.151.7cm/sAoV VTI33.3cm AO Peak GR.9.2mmHgLVOT Peak Jose J.93.7cm/s LVOT VTI 22.84cmAO Mean GR.4mmHg Mitral Valve MV E Wjoazpop800.7cm/sMV E Peak Gr.8mmHg MV DECEL [id number] A Zempwvje94.8cm/s MV E Mean Gr.2mmHgE/A Ratio2.4 Pulmonary Valve PV Peak Nxidlirv844.9cm/sPV Peak Grad.5mmHg Tricuspid Valve TR P. Xblxqyyy856gq/sTR Peak Gr.23mmHg Pulmonary Vein S1 Orztknvj99.2cm/sD2 Lvqqhaea76.5cm/s LEFT VENTRICLE The left ventricle is normal size. There is normal left ventricular wall thickness. The left ventricu lar systolic function is normal and the ejection fraction is within normal range. The Ejection Fracti on is 60-65%. There is normal LV segmental wall motion. The left ventricular diastolic function and f illing is normal for age. No left ventricle thrombus noted on this study. There is no ventricular sep paco defect visualized. There is no left ventricular aneurysm. There is no mass noted in the left vent ricle. RIGHT VENTRICLE The right ventricle is normal size. There is normal right ventricular wall thickness. The right ventr icular systolic function is normal. ATRIA The left atrium is mildly dilated. The right atrium is borderline dilated. The interatrial septum is intact with no evidence for an atrial septal defect or patent foramen ovale as noted on 2-D or Dopple r imaging. AORTIC VALVE The aortic valve is normal in structure and function. Doppler and Color Flow revealed no significant aortic regurgitation. There is no significant aortic valvular stenosis. There is no aortic valvular v egetation. MITRAL VALVE The mitral valve is normal in structure and function. There is no evidence of mitral valve prolapse. There is no mitral valve stenosis. Doppler and Color Flow revealed no mitral valve regurgitation note d. TRICUSPID VALVE The tricuspid valve is normal in structure and function. Doppler and Color Flow revealed trace tricus pid regurgitation. The PA pressure was estimated at 28 mmHg. There is no tricuspid valve prolapse or vegetation. There is no tricuspid valve stenosis. PULMONIC VALVE The pulmonic valve is not well seen. Doppler and Color Flow revealed no pulmonic valvular regurgitati on. There is no pulmonic valvular stenosis. GREAT VESSELS The aortic root is normal in size. The ascending aorta is normal in size. The IVC is normal in size a nd collapses >50% with inspiration. PERICARDIAL EFFUSION There is no pleural effusion. There is no evidence of significant pericardial effusion. Critical Notification Critical Value: No <Conclusion> The left ventricular systolic function is normal and the ejection fraction is within normal range. Th e Ejection Fraction is 60-65%. There is normal LV segmental wall motion. Signed by : Roc Sun, Electronically Approved : 06/30/2021 10:12:33
--- NOTE | 2021-06-30 10:20 | DISCH ---
HOME HEALTH DISCHARGE/MEDS DISCHARGE INFORMATION: Discharge Date: Jun 30, 2021 Final Diagnosis: Problems Medical Problems: (1) Hypoxia Status: Acute (2) Pneumonia Status: Acute Condition on Discharge: Stable CODE STATUS: Code Status: Full HOME HEALTH: Face to Face: I certify this patient is under my care and that I, or a nurse practitioner or physician's power plant assistant working with me, had a face to face encounter that meets the physician face to face encounter requirements with this patient on June 30, 2021 Medical Condition(s): DM, Pneumonia Custodial For: Assess Cardiopulm Status, Assess & Educate Safety, Assess/Skilled Observatio, Medication Management POST DISCHARGE ORDERS: Activity Instructions for Disc: Activity as tolerated Weight Bearing Status after Di: No restrictions DIET AFTER DISCHARGE: ADA CHECKS AFTER DISCHARGE: Checks after discharge: Check blood sugar, ac/hs CERTIFICATION STATEMENT: Certification Statement: Based on the above finding, I certify that this patient is confined to the home and needs intermittent mcc care, physical therapy and/or speech therapy, or continues to need occupational therapy.~ This patient is under my care, and I have initiated the establishment of the plan of care.~ This patient will be followed by myself or a community physician who will periodically review the plan of care. DISCHARGE MEDICATIONS: Home Meds Active Scripts Prednisone (PREDNISONE) 10 Mg Tablet, 10 MG PO DAILY for sob, #60 TAB 1 Refill Prov:ASHVIN ALBERTO MD 06/30/21 Doxycycline Hyclate (DOXYCYCLINE HYCLATE) 100 Mg Tablet, 1 TAB PO BID for pneumonia, #14 TAB Prov:ASHVIN ALBERTO MD 06/30/21 Levothyroxine Sodium (SYNTHROID) 75 Mcg Tablet, 75 MCG PO DAILY06 for hypothyroidism for 30 Days, #30 TAB 5 Refills Prov:ASHVIN ALBERTO MD 06/30/21 Glipizide (GLIPIZIDE) 5 Mg Tablet, 5 MG PO BIDBFRMEAL for dm for 30 Days, #60 TAB Prov:ASHVIN ALBERTO MD 06/30/21 Furosemide (FUROSEMIDE) 40 Mg Tablet, 40 MG PO DAILY for edema for 30 Days, #30 TAB Prov:ASHVIN ALBERTO MD 06/30/21 Ipratropium/Albuterol Sulfate (DUONEB 0.5-3(2.5) MG/3 ML) 3 Ml Ampul.neb, 3 ML NEB RTQID for sob for 30 Days, #120 EACH Prov:ASHVIN ALBERTO MD 06/30/21 Nystatin (NYSTOP) 60 Gm Powder, 1 HOLLY TP BID, #1 BOTTLE Prov:ASHVIN ALBERTO MD 08/07/16 Reported Medications Gabapentin (Gabapentin) 100 Mg Capsule, 100 MG PO DAILY for neuropathy 06/24/21 Insulin Glargine,Hum.rec.anlog (LANTUS SOLOSTAR) 100 Unit/1 Ml Insuln.pen, 20 UNIT SQ QHS for HIGH BLOOD SUGAR, #15 ML 5 Refills last dose last night next dose tonight at bedtime 08/04/16 Ferrous Sulfate (IRON) 325 Mg Capsule.er, 325 MG PO DAILY for SUPPLEMENT last dose this morning next dose tomorrow 08/04/16 Fluticasone/Salmeterol (ADVAIR 250-50 DISKUS) 1 Each Disk.w.dev, 1 PUFF IH BID for SHORTNESS OF BREATH resume tonight 08/04/16 Fluoxetine Hcl (FLUOXETINE HCL) 20 Mg Tablet, 1 TAB PO DAILY for DEPRESSION last dose this morning next dose tomorrow 08/04/16 Ranitidine Hcl (RANITIDINE HCL) 150 Mg Tablet, 1 TAB PO BID for HEARTBURN / GAS last dose this morning next dose tonight 08/04/16 Montelukast Sodium (MONTELUKAST SODIUM TABLET ) 10 Mg Tablet, 1 TAB PO DAILY for ALLERGIES last dose this morning next dose tomorrow 08/04/16 Nystatin/Triamcin (NYSTATIN-TRIAMCINOLONE CREAM) 15 Gm Cream..g., 1 APPLIC TOP BID for BUTTOCK EXCORIATION last dose today next dose tonight 08/04/16 Estrogens, Conjugated (PREMARIN) 0.45 Mg Tablet, 1 TAB PO DAILY for HORMONE REPLACEMENT last dose this morning next dose tomorrow 08/04/16 Insulin Glargine,Hum.rec.anlog (LANTUS SOLOSTAR) 100 Unit/1 Ml Insuln.pen, 30 UNIT SQ DAILY for HIGH BLOOD SUGAR last dose this morning next dose tomorrow 09/08/15 Insulin Aspart (NOVOLOG) 100 Unit/1 Ml Cartridge, 0-9 UNIT SQ QIDACHS for HIGH BLOOD SUGAR last dose with lunch next dose with supper 09/08/15 Fluticasone Propionate (Flonase Allergy Relief) 9.9 Ml [place].susp, 2 SPRAYS NS DAILY for SINUS CONGESTION last dose this morning next dose tomorrow 09/08/15 Albuterol Sulfate (PROAIR HFA INHALER) 8.5 Gm Hfa.aer.ad, 2 PUFF IH PRN Q4-6HRS for SHORTNESS OF AIR LAST DOSE GIVEN: DATE: TIME: NEXT DOSE DUE: DATE: TIME: 09/08/15 Discontinued Reported Medications Terbinafine Hcl (TERBINAFINE HCL) 30 Gm Cream..g., 30 GM TP BID for ATHLETE'S FOOT resume as needed 08/05/16 Prednisone (PREDNISONE) 10 Mg Tablet, 1 TAB PO DAILY for SHORTNESS OF BREATH last dose this morning next dose tomorrow 08/04/16 ASHVIN ALBERTO MD Jun 30, 2021 10:20
--- NOTE | 2021-06-30 12:09 | NUR ---
PATIENT IS DISCHARGED HOME WITH HOME HEALTH SERVICE AND SUPPLEMENTAL OXYGEN. DISCHARGED INSTRUCTION REVIEWED, FAMILY MEMBER VERBALIZED UNDERSTANDING. PATIENT LEFT ROOM 119 VIA W/C ACCOMP BY STAFF. PATIENT TAKEN HOME BY MOTHER VIA PERSONAL VEHICLE.
--- NOTE | 2021-07-07 09:29 | DS ---
DATE OF DISCHARGE: 06/30/2021 HOSPITAL COURSE: A 46-year-old female with Down syndrome. The patient was admitted with a left upper lobe pneumonia, acute respiratory distress, dehydration and the like. The patient made a fairly good progress. We gave her low dose steroids. She already had problems with her blood sugars and consequently she was on sliding scale as it had to be adjusted upwards to get her sugars under good control. The patient's sugars ran in the 300s, but we were able to wean down into the 100s. The patient's hemoglobin dropped to 11.4, 34.8. The patient made slow, but steady progress with IV antibiotic therapy, aggressive pulmonary toilet. The repeat chest x-ray showed diffuse interstitial infiltrates, which were improved. All this was discussed with the mother who stayed with the patient because of her needs. The patient was COVID negative. The patient made good progress. She was discharged home with a home health agency to continue monitoring carefully. IMPRESSION: Pneumonia and exacerbation of acute respiratory distress, morbid obesity, Down syndrome, dehydration, type 2 diabetes, under poor control. Moderate protein malnutrition. The patient will be on a heart healthy diabetic diet and follow up accordingly as an outpatient or sooner as needed. HOLLIE DR: Felecia TID: [id number]
== END 2021-06-30 12:10 | disposition home health service (06) | DRG 871 ==
LOC: ER 16:29 → 1 SOUTH 20:12
PROVIDERS: ADMIT Family Medicine; ATTEND Family Medicine
DX: A41.9 Sepsis, unspecified organism (principal); J96.01 Acute respiratory failure with hypoxia; J15.6 Pneumonia due to other Gram-negative bacteria; J15.9 Unspecified bacterial pneumonia; E44.0 Moderate protein-calorie malnutrition; J45.909 Unspecified asthma, uncomplicated; E11.65 Type 2 diabetes mellitus with hyperglycemia; E86.0 Dehydration; E66.01 Morbid (severe) obesity due to excess calories; Z20.822 Contact with and (suspected) exposure to COVID-19; Z79.4 Long term (current) use of insulin; Z90.710 Acquired absence of both cervix and uterus; Z88.5 Allergy status to narcotic agent; Z88.2 Allergy status to sulfonamides; Z88.8 Allergy status to other drugs, medicaments and biological substances; Q90.9 Down syndrome, unspecified
CPT/HCPCS: 36415; 71045; 71046; 80048; 80053; 80202; 81001; 82550; 82947; 83036; 83735; 83880; 84443; 84484; 85025; 85379; 87426; 87804; 93005; 93306; 94618; 94640; 94760; 96361; 96365; 96375; J0696; J1100; J1650; J1815; J2543; J2920; J3370; J7040; J7050; Q0162; Q0163; U0003; 92610; 97110; 99285-25; J7030

== ENCOUNTER → 2021-07-09 | Outpatient (CLI) | payer MEDICARE ==
[2021-06-30 06:25] VITALS: BP 111/75
[~2021-07-09] MED LIST changes: +DOXY100T PO; +FURO40TA4 PO; +GABA100C6 PO; +GLIP5TAB10 PO; +LEVO75TA PO
--- NOTE | 2021-07-09 16:13 | RAD ---
XR CHEST 2V CLINICAL INDICATIONS: Reason: FOLLOW UP PNEUMONIA / Spl. Instructions: PLEASE COMPARE TO XRAY X 1 WEE K AGO / History: COMPARISON: June 29, 2021. Findings: Again seen are bilateral mainly perihilar interstitial and ill-defined nodular lung infiltr ates. There has been no significant change. No new lung consolidation is evident. Mild blunting of th e left lateral costophrenic angle is seen due to chronic pleural thickening. The posterior costophren ic angles remain clear and therefore no pleural effusion is seen. No pneumothorax is seen. Cephalizat ion of pulmonary flow is again evident. The heart size is mildly enlarged but stable. Mediastinum is unchanged. Scoliosis is seen. IMPRESSION: Stable bilateral perihilar lung infiltrates. Cephalization of pulmonary flow is again evident. This may indicate CHF. The heart size is mildly enl arged but stable. Electronically signed by: Handy Vogel MD (07/09/2021 4:11 PM) [id number]
[2021-07-09 16:22] LABS: BASO # 0.1 x10^3/uL (0.0-0.2); BASO % 1 % (0-3); EOS # 0.1 x10^3/uL (0.0-0.7); EOS % 1 % (0-3); HEMATOCRIT 38.8 % (36.0-47.0); HEMOGLOBIN 12.8 g/dL (12.0-15.5); LYMPH # 0.9 x10^3/uL (1.0-4.8); LYMPH % 13 % (24-48); MEAN CORPUSCULAR HEMOGLOBIN 32 pg (25-35); MEAN CORPUSCULAR HGB CONC 33 g/dL (31-37); MEAN CORPUSCULAR VOLUME 97 fL (79-100); MONO % 13 % (0-9); NEUT # 5.1 x10^3uL (1.8-7.7); NEUT % 71 % (31-73); PLATELET COUNT 310 x10^3/uL (140-400); RED CELL DISTRIBUTION WIDTH 14.8 % (11.5-14.5); WHITE BLOOD COUNT 7.2 x10^3/uL (4.0-11.0)
[2021-07-09 16:44] LABS: ALBUMIN/GLOBULIN RATIO 0.6 (1.0-1.7); C REACTIVE PROTEIN 47.8 mg/L (0-3.3); CREATININE 1.7 mg/dL (0.6-1.0); GFR 32.4; POTASSIUM 3.9 mmol/L (3.5-5.1); TOTAL BILIRUBIN 0.4 mg/dL (0.2-1.0); TOTAL PROTEIN 7.8 g/dL (6.4-8.2)
== END ==
LOC: RAD 15:42
PROVIDERS: ATTEND Family Medicine
DX: R91.8 Other nonspecific abnormal finding of lung field (principal); I51.7 Cardiomegaly; I28.8 Other diseases of pulmonary vessels; M41.9 Scoliosis, unspecified; J91.8 Pleural effusion in other conditions classified elsewhere; E11.65 Type 2 diabetes mellitus with hyperglycemia; J45.998 Other asthma; J80 Acute respiratory distress syndrome; R63.0 Anorexia
CPT/HCPCS: 36415; 71046; 80053; 83880; 84145; 85025; 86140

== ENCOUNTER 2021-08-25 14:09 | Emergency (ER) | payer MEDICARE ==
[~2021-08-25] VITALS: Ht 157.5 cm; Wt 143.1 kg
[2021-08-25] MEDS ORDERED: DEXTROSE 50% 25 GM / 50ML DISP.SYRIN. IV ONE ×3 (14:12→14:30)
--- NOTE | 2021-08-25 14:28 | PHYS DOC ---
Past History Past Medical History: Asthma, Diabetes, Other Additional Past Medical Histor: DM I, LYMPHEDEMA, DOWNS SYNDROME, CHROHNS, CELIAC DISEASE (HAYLIE HURD DO) Past Surgical History: Hysterectomy, Oophorectomy (HAYLIE HURD DO) Smoking: Non-smoker Alcohol Use: None Drug Use: None (HAYLIE HURD DO) General Adult EDM: Chief Complaint: HYPOGLYCEMIA HPI: HPI: 46-year-old female presents via EMS with hypoglycemia. Patient was found by her family down on the ground with blood on her face. They had left the house about 30 minutes prior and the patient was in good condition. When EMS arrived, they found her blood sugar to be "low". They attempted IVs and they were unable to get one. They did give her some glucagon. On arrival, the patient's blood sugar was 29. She is unable to provide history at this time. (HAYLIE HURD DO) Review of Systems: Review of Systems: Unable to complete due to patient's condition (HAYLIE HURD DO) Current Medications: Current Meds: Current Medications Medications (Trade) Dose Ordered Sig/[place]arlan Start Time Stop Time Status Last Admin Dose Admin Dextrose (Dextrose 50%-Water Syringe) 25 gm STK-MED ONCE 08/25/21 14:12 08/25/21 14:13 DC (HAYLIE HURD DO) Allergies: Allergies: Allergies Coded Allergies Type Severity Reaction Last Updated Verified Sulfa (Sulfonamide Antibiotics) Allergy Intermediate 05/02/14 Yes codeine Allergy Intermediate 05/02/14 Yes strawberry Allergy Intermediate 05/02/14 Yes adhesive Allergy Unknown 06/24/21 Yes gluten Allergy Unknown 06/24/21 Yes (HAYLIE HURD DO) Physical Exam: PE: Constitutional: Well developed, well nourished, morbidly obese, moderate acute distress. [] HENT: Normocephalic, dried blood on face, bilateral external ears normal, oropharynx moist, no oral exudates, nose normal. [] Eyes: PERRLA, EOMI, conjunctiva normal, no discharge. [] Neck: No tenderness, supple, no stridor. [] Cardiovascular: Heart rate 94,regular rhythm, no murmur [] Lungs & Thorax: Bilateral breath sounds with expiratory crackles. [] Abdomen: Bowel sounds normal, soft, no tenderness, no masses, no pulsatile masses. [] Skin: Warm, dry, no erythema, no rash. [] Back: No obvious trauma [] Extremities: No tenderness, no cyanosis, no clubbing, ROM intact, no edema. [] Neurologic: Awake but not answering questions. [] [] (HAYLIE HURD DO) Current Patient Data: Labs: Laboratory Tests Test 08/25/21 14:19 Glucose (Fingerstick) 284 mg/dL (70-99) H (HAYLIE HURD DO) EKG: EKG: [] (HAYLIE HURD DO) Radiology/Procedures: Radiology/Procedures: [] Impressions: EXAM: Head and cervical spine CT without contrast. HISTORY: Fall. Syncope. TECHNIQUE: Computed tomographic images of the head and cervical spine were obtained without contrast. *One or more of the following individualized dose reduction techniques were utilized for this examination: 1. Automated exposure control. 2. Adjustment of the mA and/or kV according to patient size. 3. Use of iterative reconstruction technique. COMPARISON: None. FINDINGS: There is no acute or subacute extra-axial or intraparenchymal hemorrhage. There is no mass effect or midline shift. There is no hydrocephalus. There is a cavum septum pellucidum et vergae. No suspicious calvarial lesion is seen. The orbits and mastoid air cells are not well seen due to motion. There is cervical kyphosis. There is no significant listhesis. There is multilevel endplate remodeling. There is multilevel facet and uncovertebral therapy. The combination of degenerative changes results in mild to moderate right foraminal stenosis at C4-C5. The visualized portions of the orbits, paranasal sinuses and mastoid air cells are unremarkable. No suspicious calvarial lesion is seen. There is right apical groundglass opacity likely due to atelectasis. There is partial visualization of a 3 mm right apical pulmonary nodule, likely benign. IMPRESSION: 1. No acute intracranial finding or evidence of acute cervical spine trauma. The exam is limited due to motion. 2. Multilevel degenerative change involving the cervical spine, described above. Electronically signed by: Ebonie Mojica MD (08/25/2021 2:59 PM) [id number] DICTATED AND SIGNED BY: EBONIE MOJICA MD DATE: 08/25/21 2821 CC: HAYLIE HURD DO; ASHVIN ALBERTO MD ~MTH0 0 INDICATION: Reason: AMS / Spl. Instructions: / History: COMPARISON: July 09, 2021 FINDINGS: Frontal view of chest obtained. Cardiac mediastinal silhouette is enlarged. Diffuse pulmonic opacities bilaterally appear increased from prior IMPRESSION: * Increasing pulmonic opacities within the bilateral lungs. Could be secondary to increase in bilateral pneumonia and/or edema. Electronically signed by: Verna Merida MD (08/25/2021 2:43 PM) DESKTOP- [id number] DICTATED AND SIGNED BY: VERNA MERIDA MD DATE: 08/25/21 1441 CC: HAYLIE HURD DO; ASHVIN ALBERTO MD ~MTH0 0 (HAYLIE HURD DO) Heart Score: C/O Chest Pain: N/A Risk Factors: Risk Factors: DM, Current or recent (<one month) smoker, HTN, HLP, family history of CAD, obesity. Risk Scores: Score 0 - 3: 2.5% MACE over next 6 weeks - Discharge Home Score 4 - 6: 20.3% MACE over next 6 weeks - Admit for Clinical Observation Score 7 - 10: 72.7% MACE over next 6 weeks - Early Invasive Strategies (HAYLIE HURD DO) C/O Chest Pain: No (DENISE FENG DO) Course & Med Decision Making: Course & Med Decision Making Pertinent Labs and Imaging studies reviewed. (See chart for details) On arrival patient's blood sugar was found to be 29. 2 IVs were established. She was given 2 amps of D50 and a liter normal saline. The patient's blood sugar continued to be borderline so we started her on D10. Head CT is negative for acute findings. Her chest x-ray shows increasing bilateral infiltrates, but review of her records show she has had some level of these since June of this year. The patient's white count is normal. She does not have symptoms of pneumonia such as cough or fever. I have advised the patient and her caregivers to make her primary physician aware of these findings to consider further evaluation by construction stonemason. The patient's blood sugar level has continued to be difficult to keep in the normal range. We will continue to stabilize her with D10 and boluses of dextrose as needed. I had a long conversation with the patient's mother who is her primary caregiver. We developed a strategy together for her insulin management over the next couple of days. I am signing the patient out to Dr. Feng at 1800 for further management and decision about disposition. [] (HAYLIE HURD DO) Course & Med Decision Making I assumed care of patient after comprehensive signout from off going physician I reviewed entirety of ER work-up and personally saw patient repeating certain aspects of history and physical exam with mother and eventually sister at bedside There was reported improvement in patient's overall mentation and physical state since arrival to ER per both family members I disclosed my concern given poor health literacy and management of patient's type 1 diabetes. Patient does not have an pearl cutter which I advised him to establish with I recommended need for hospitalization as this is patient's third hypoglycemic event in 7 days with ongoing high risk medications such as 1 day left of prednisone and chronic pulmonary issues. Nonetheless, patient mother and daughter deferred They state patient has great family support at home, patient stays in the same room his mother who is well educated on checking fingerstick blood glucose. With this decision being made, I did recommend for new prescription of glucagon for use as needed for severe hypoglycemic episodes Patient mother and sister are all amenable to discharge home and verbally understood all return precautions discussed at length. Mother admits patient has follow-up with primary care physician in 24 hours which I feel is amenable (DENISE FENG DO) Dragon Disclaimer: Dragon Disclaimer: This electronic medical record was generated, in whole or in part, using a voice recognition dictation system. (HAYLIE HURD DO) Departure Departure: Impression: Primary Impression: Hypoglycemia due to type 1 diabetes mellitus Additional Impression: History of recurrent pulmonary infection Disposition: HOME / SELF CARE / HOMELESS Condition: STABLE Referrals: ASHVIN ALBERTO MD (PCP) Additional Instructions: As discussed prior to ER departure, your vitals, physical examination and comprehensive ER work-up were concerning for hypoglycemia likely due to inconsistent fast acting insulin administration and recent pulmonary infection. As disclosed, please lower amount of fast acting insulin use during meals with specific attention noted to how many carbs are being consumed to avoid any future episodes of hyperglycemia. You were prescribed Glucagon today which should be used for hypoglycemic emergencies only. You need to contact your primary care physician first thing in the morning to review ER visit today and need for close outpatient follow-up. Any concerning signs or symptoms present prior to outpatient follow-up please do not hesitate to come back for repeat evaluation Scripts Glucagon,Human Recombinant (GLUCAGON EMERGENCY KIT) 1 Mg Kit 1 MG IM PRN for hypoglycemia, #2 KIT 5 Refills Prov: DENISE FENG DO 08/25/21 HAYLIE HURD DO Aug 25, 2021 14:28 DENISE FENG DO Aug 25, 2021 18:50
[2021-08-25] MEDS ORDERED: IV NORMAL SALINE 1,000ML 1,000 ML IV ONE (14:30)
[2021-08-25 14:34] LABS: BASO # 0.1 x10^3/uL (0.0-0.2); BASO % 1 % (0-3); EOS # 0.1 x10^3/uL (0.0-0.7); EOS % 2 % (0-3); HEMATOCRIT 38.1 % (36.0-47.0); HEMOGLOBIN 12.6 g/dL (12.0-15.5); LYMPH # 2.3 x10^3/uL (1.0-4.8); LYMPH % 29 % (24-48); MEAN CORPUSCULAR HEMOGLOBIN 32 pg (25-35); MEAN CORPUSCULAR HGB CONC 33 g/dL (31-37); MEAN CORPUSCULAR VOLUME 96 fL (79-100); MONO # 1.1 x10^3/uL (0.0-1.1); MONO % 14 % (0-9); NEUT # 4.4 x10^3uL (1.8-7.7); NEUT % 55 % (31-73); PLATELET COUNT 311 x10^3/uL (140-400); RED BLOOD COUNT 3.96 x10^6/uL (3.50-5.40); RED CELL DISTRIBUTION WIDTH 15.9 % (11.5-14.5)
[2021-08-25 14:42] LABS: ALBUMIN 3.6 g/dL (3.4-5.0); ALBUMIN/GLOBULIN RATIO 0.9 (1.0-1.7); CALCIUM 8.9 mg/dL (8.5-10.1); GFR 59.7; POTASSIUM 3.7 mmol/L (3.5-5.1); TOTAL BILIRUBIN 0.3 mg/dL (0.2-1.0); TOTAL PROTEIN 7.6 g/dL (6.4-8.2)
--- NOTE | 2021-08-25 14:46 | RAD ---
INDICATION: Reason: AMS / Spl. Instructions: / History: COMPARISON: July 09, 2021 FINDINGS: Frontal view of chest obtained. Cardiac mediastinal silhouette is enlarged. Diffuse pulmonic opacities bilaterally appear increased f rom prior IMPRESSION: * Increasing pulmonic opacities within the bilateral lungs. Could be secondary to increase in bilate ral pneumonia and/or edema. Electronically signed by: Keshav Stout MD (08/25/2021 2:43 PM) [id number]
--- NOTE | 2021-08-25 15:02 | RAD ---
EXAM: Head and cervical spine CT without contrast. HISTORY: Fall. Syncope. TECHNIQUE: Computed tomographic images of the head and cervical spine were obtained without contrast. *One or more of the following individualized dose reduction techniques were utilized for this examina tion: 1. Automated exposure control. 2. Adjustment of the mA and/or kV according to patient size. 3. Use of iterative reconstruction technique. COMPARISON: None. FINDINGS: There is no acute or subacute extra-axial or intraparenchymal hemorrhage. There is no mass effect or midline shift. There is no hydrocephalus. There is a cavum septum pellucidum et vergae. No suspicious calvarial lesion is seen. The orbits and mastoid air cells are not well seen due to motion. There is cervical kyphosis. There is no significant listhesis. There is multilevel endplate remodelin g. There is multilevel facet and uncovertebral therapy. The combination of degenerative changes resul ts in mild to moderate right foraminal stenosis at C4-C5. The visualized portions of the orbits, paranasal sinuses and mastoid air cells are unremarkable. No s uspicious calvarial lesion is seen. There is right apical groundglass opacity likely due to atelectas is. There is partial visualization of a 3 mm right apical pulmonary nodule, likely benign. IMPRESSION: 1. No acute intracranial finding or evidence of acute cervical spine trauma. The exam is limited due to motion. 2. Multilevel degenerative change involving the cervical spine, described above. Electronically signed by: Ebonie Perez MD (08/25/2021 2:59 PM) [id number]
--- NOTE | 2021-08-25 15:16 | EKG ---
[address] [address] Test Date: 2021-08-25 Test Time: 14:29:57 Pat Name: ROMEO GALLARDO Department: Room: Gender: F Brand Strategy Manager: ALBERTO : 1975 Requested By: HAYLIE HURD Order Number: [id number] Reading MD: Roc Sun MD Measurements Intervals [place] Rate: 93 P: 41 SC: 150 QRS: 50 QRSD: 90 T: -6 QT: 370 QTc: 463 Interpretive Statements SINUS RHYTHM Electronically Signed On 08-31-2021 15:05:41 HEAD OF COMMISSION DEPARTMENT by Roc Sun MD
[2021-08-25] MEDS ORDERED: IV DEXTROSE 10% 1,000 ML IV ONE (16:00)
[2021-08-25] MEDS ORDERED: IOHEXOL 350 MG/ML 100 ML VIAL. IV ONE (17:00)
--- NOTE | 2021-08-25 18:16 | RAD ---
EXAM: CT chest with contrast - pulmonary embolus protocol CLINICAL HISTORY: Reason: abnormal CXR, shortness of breath COMPARISON: None. TECHNIQUE: CT of the chest following the administration of intravenous contrast during the pulmonary arterial phase. Axial, coronal and sagittal reformatted images were generated including MIP images. ---PQRS compliance statement - One or more of the following individualized dose reduction techniques were utilized for this study: 1. Automated exposure control 2. Adjustment of the mA and/or kV according to patient size 3. Use of iterative reconstruction technique--- FINDINGS: CHEST: Diagnostic quality: Suboptimal. Pulmonary emboli: No pulmonary emboli to the level of the segmental branches. More peripheral vessel s are not well assessed. Right heart strain: None Pulmonary arteries: Normal in caliber. Heart is not enlarged. No pericardial effusion. No pleural effusion. No pneumothorax. No axillary lym phadenopathy. No mediastinal or hilar lymphadenopathy. However mildly prominent hilar lymph nodes lik medina reactive. No suspicious lung nodule or mass. Vague groundglass opacities bilaterally. No pleural effusion. No pneumothorax. Visualized Upper abdomen: unremarkable Bones: No aggressive osseous lesion. IMPRESSION: Vague groundglass opacities bilaterally possibly atypical infectious or pulmonary process. Mildly prominent hilar lymph nodes likely reactive. Electronically signed by: Krishan De Anda MD (08/25/2021 6:14 PM) CHAPO
[2021-08-25] MEDS ORDERED: GLUC1KIT IM (18:49)
[2021-08-25 19:58] VITALS: BP 116/76
== END 2021-08-25 20:01 | disposition home or self-care (01) ==
LOC: ER 14:09
DX: E10.649 Type 1 diabetes mellitus with hypoglycemia without coma (principal); J45.909 Unspecified asthma, uncomplicated; Z88.2 Allergy status to sulfonamides; Z88.5 Allergy status to narcotic agent; Z91.018 Allergy to other foods; Z88.8 Allergy status to other drugs, medicaments and biological substances
CPT/HCPCS: 36415; 70450; 71045; 71275; 72125; 80053; 82947; 83605; 84484; 85025; 93005; 96365; 96366; 96376; 99284-25; 99285-25

== ENCOUNTER 2021-09-26 14:32 | Emergency (ER) | payer MEDICARE ==
[~2021-09-26] VITALS: Ht 157.5 cm; Wt 136.0 kg
[2021-09-26] MEDS ORDERED: DEXTROSE 50% 25 GM / 50ML DISP.SYRIN. IV ONE ×2 (14:36→14:45)
--- NOTE | 2021-09-26 15:11 | PHYS DOC ---
Past History Past Medical History: Asthma, Diabetes, Other Additional Past Medical Histor: DM I, LYMPHEDEMA, DOWNS SYNDROME, CHROHNS, CELIAC DISEASE (HAYLIE HURD DO) Past Surgical History: Hysterectomy, Oophorectomy (HAYLIE HURD DO) Smoking: Non-smoker Alcohol Use: None Drug Use: None (HAYLIE HURD DO) General Adult EDM: Chief Complaint: HYPOGLYCEMIA HPI: HPI: 46-year-old female with Down syndrome presents via EMS with hypoglycemia. The patient is coming by her mother who is her primary caregiver. The patient was not feeling well a little before lunch and her mother checked her blood sugar. It was in the 40s so she called EMS. EMS came to give her some dextrose which improved to 170. The patient remained at home. Less than 20 minutes later, the patient's blood sugar was back in the 40s so her mother called EMS again and decided to come the hospital. She got as low as the 20s prior to dextrose administration by EMS. The patient's last dose of insulin was 5 units of Lantus around midnight. The patient is no longer on prednisone. She had 3 episodes of significant hypoglycemia in August. The patient is planning to see endoc rinology but has not been able to make the appointment yet. Patient has not mentioned any other symptoms of illness lately. (HAYLIE HURD DO) Review of Systems: Review of Systems: Constitutional: Denies fever or chills. Fatigue, hypoglycemia. Eyes: Denies change in visual acuity HENT: Denies nasal congestion or sore throat Respiratory: Denies cough or shortness of breath Cardiovascular: Denies chest pain or edema GI: Denies abdominal pain, nausea, vomiting, bloody stools or diarrhea : Denies dysuria Musculoskeletal: Denies back pain or joint pain Integument: Denies rash Neurologic: Denies headache, focal weakness or sensory changes Endocrine: Hypoglycemia Lymphatic: Denies swollen glands Psychiatric: Denies depression or anxiety (HAYLIE HURD DO) Current Medications: Current Meds: Current Medications Medications (Trade) Dose Ordered Sig/Harlan Start Time Stop Time Status Last Admin Dose Admin Dextrose 1,000 ml @ 75 mls/hr 1X ONCE 09/26/21 15:15 09/27/21 04:34 UNV Dextrose (Dextrose 50%-Water Syringe) 25 gm 1X ONCE 09/26/21 14:45 09/26/21 14:46 DC (HAYLIE HURD DO) Allergies: Allergies: Allergies Coded Allergies Type Severity Reaction Last Updated Verified Sulfa (Sulfonamide Antibiotics) Allergy Intermediate 05/02/14 Yes codeine Allergy Intermediate 05/02/14 Yes strawberry Allergy Intermediate 05/02/14 Yes adhesive Allergy Unknown 06/24/21 Yes gluten Allergy Unknown 06/24/21 Yes (HAYLIE HURD DO) Physical Exam: PE: Constitutional: Well developed, well nourished, morbidly obese, no acute distress, non-toxic appearance. [] HENT: Normocephalic, atraumatic, bilateral external ears normal, oropharynx moist, no oral exudates, nose normal. [] Eyes: PERRLA, EOMI, conjunctiva normal, no discharge. [] Neck: Normal range of motion, no tenderness, supple, no stridor. [] Cardiovascular: Heart rate 66, regular rhythm, no murmur [] Lungs & Thorax: Bilateral breath sounds diminished but clear to auscultation [] Abdomen: Bowel sounds normal, soft, no tenderness, no masses, no pulsatile masses. [] Skin: Warm, dry, no erythema, no rash. [] Back: No tenderness, no CVA tenderness. [] Extremities: No tenderness, no cyanosis, no clubbing, ROM intact, no edema. [] Neurologic: Arousable to verbal stimuli, normal motor function, normal sensory function, no focal deficits noted. [] Psychologic: Affect normal, judgement normal, mood normal. [] (HAYLIE HURD DO) Current Patient Data: Labs: Laboratory Tests Test 09/26/21 14:35 Glucose (Fingerstick) 70 mg/dL (70-99) Vital Signs: Vital Signs Date Time Temp Pulse Resp B/P (MAP) Pulse Ox O2 Delivery O2 Flow Rate FiO2 09/26/21 14:40 97.5 66 154/80 (104) 98 (HAYLIE HURD DO) Labs: Laboratory Tests Test 09/26/21 14:35 09/26/21 15:06 09/26/21 15:38 09/26/21 15:45 Glucose (Fingerstick) 70 mg/dL 93 mg/dL 79 mg/dL White Blood Count 6.4 x10^3/uL Red Blood Count 3.49 x10^6/uL Hemoglobin 11.1 g/dL Hematocrit 33.5 % Mean Corpuscular Volume 96 fL Mean Corpuscular Hemoglobin 32 pg Mean Corpuscular Hemoglobin Concent 33 g/dL Red Cell Distribution Width 16.0 % Platelet Count 282 x10^3/uL Neutrophils (%) (Auto) 78 % Lymphocytes (%) (Auto) 9 % Monocytes (%) (Auto) 11 % Eosinophils (%) (Auto) 1 % Basophils (%) (Auto) 1 % Neutrophils # (Auto) 5.0 x10^3uL Lymphocytes # (Auto) 0.6 x10^3/uL Monocytes # (Auto) 0.7 x10^3/uL Eosinophils # (Auto) 0.1 x10^3/uL Basophils # (Auto) 0.1 x10^3/uL Sodium Level 141 mmol/L Potassium Level 4.1 mmol/L Chloride Level 102 mmol/L Carbon Dioxide Level 32 mmol/L Anion Gap 7 Blood Urea Nitrogen 18 mg/dL Creatinine 0.9 mg/dL Estimated GFR (Cockcroft-Gault) 67.4 BUN/Creatinine Ratio 20 Glucose Level 61 mg/dL Calcium Level 8.5 mg/dL Total Bilirubin 0.4 mg/dL Aspartate Amino Transf (AST/SGOT) 25 U/L Alanine Aminotransferase (ALT/SGPT) 19 U/L Alkaline Phosphatase 64 U/L Total Protein 7.4 g/dL Albumin 3.1 g/dL Albumin/Globulin Ratio 0.7 Test 09/26/21 16:04 09/26/21 17:35 09/26/21 18:35 Glucose (Fingerstick) 77 mg/dL 169 mg/dL 222 mg/dL Current Medications Medications (Trade) Dose Ordered Sig/Harlan Route PRN Reason Start Time Stop Time Status Last Admin Dose Admin Dextrose (Dextrose 50%-Water Syringe) 25 gm STK-MED ONCE IV 09/26/21 14:36 09/26/21 14:36 DC Dextrose (Dextrose 50%-Water Syringe) 25 gm 1X ONCE IV 09/26/21 14:45 09/26/21 14:46 DC 09/26/21 15:08 Dextrose 1,000 ml @ 75 mls/hr 1X ONCE IV 09/26/21 15:15 09/27/21 04:34 09/26/21 15:09 Vital Signs: Vital Signs Date Time Temp Pulse Resp B/P (MAP) Pulse Ox O2 Delivery O2 Flow Rate FiO2 09/26/21 14:40 97.5 66 154/80 (104) 98 Vital Signs Date Time Temp Pulse Resp B/P (MAP) Pulse Ox O2 Delivery O2 Flow Rate FiO2 09/26/21 14:40 97.5 66 154/80 (104) 98 (DENISE FENG DO) EKG: EKG: [] (HAYLIE HURD DO) Radiology/Procedures: Radiology/Procedures: [] (HAYLIE HURD DO) Heart Score: C/O Chest Pain: N/A Risk Factors: Risk Factors: DM, Current or recent (<one month) smoker, HTN, HLP, family history of CAD, obesity. Risk Scores: Score 0 - 3: 2.5% MACE over next 6 weeks - Discharge Home Score 4 - 6: 20.3% MACE over next 6 weeks - Admit for Clinical Observation Score 7 - 10: 72.7% MACE over next 6 weeks - Early Invasive Strategies (HAYLIE HURD DO) Course & Med Decision Making: Course & Med Decision Making Pertinent Labs and Imaging studies reviewed. (See chart for details) The patient's labs are essentially unremarkable except for low blood sugar. We started D5 as well as an amp of D50. The patient's blood sugar stayed level and the most recent reading is now above 100. We will see how she does with the D5 turned off. The patient was able to eat some food. She is still sleepy. I am signing the patient out to my colleague Dr. Feng at 1800. [] (HAYLIE HURD DO) Course & Med Decision Making I assumed complete care of patient after comprehensive signout from off going physician I reviewed entirety of ER work-up and personally saw patient repeating certain aspects of history and physical exam with mother at bedside Patient's glucose remained elevated in adequate ranges with no subsequent drops. Patient at baseline mentation. Mother and patient comfortable being discharged home as they have appropriate diabetic supplies to check sugar, have glucagon etc. Patient mother reports that patient has primary care physician follow-up this upcoming week and pending outpatient endocrinology follow-up. Strict return precautions discussed at length with good understanding, all questions and concerns addressed prior to ER departure (DENISE FENG DO) Verónicaon Disclaimer: Dragon Disclaimer: This electronic medical record was generated, in whole or in part, using a voice recognition dictation system. (HURD,HAYLIE DO) Departure Departure: Impression: Primary Impression: Hypoglycemia Disposition: HOME / SELF CARE / HOMELESS Condition: STABLE Referrals: ASHVIN ALBERTO MD (PCP) Patient Instructions: Hypoglycemia (Low Blood Sugar) Additional Instructions: As discussed prior to ER departure, your vitals, physical exam and comprehensive ER work-up were nonconcerning for any emergent or surgical issues. Sugar water and food was provided with substantial increase in improvement in your blood sugar readings. You need to contact your primary care physician and follow-up with biological technical officer in outpatient setting for further work-up that was discussed with you at length. Any concerning signs or symptoms present prior to outpatient follow-up please do not hesitate to come back for repeat evaluation. It was a pleasure to take care of you and I wish you the best going forward HAYLIE HURD DO Sep 26, 2021 15:11 DENISE FENG DO Sep 26, 2021 18:42
[2021-09-26] MEDS ORDERED: IV DEXTROSE 5% 1,000 ML IV ONE (15:15)
[2021-09-26 16:00] LABS: BASO # 0.1 x10^3/uL (0.0-0.2); BASO % 1 % (0-3); EOS # 0.1 x10^3/uL (0.0-0.7); EOS % 1 % (0-3); HEMATOCRIT 33.5 % (36.0-47.0); HEMOGLOBIN 11.1 g/dL (12.0-15.5); LYMPH # 0.6 x10^3/uL (1.0-4.8); LYMPH % 9 % (24-48); MEAN CORPUSCULAR HEMOGLOBIN 32 pg (25-35); MEAN CORPUSCULAR HGB CONC 33 g/dL (31-37); MEAN CORPUSCULAR VOLUME 96 fL (79-100); MONO # 0.7 x10^3/uL (0.0-1.1); MONO % 11 % (0-9); NEUT % 78 % (31-73); PLATELET COUNT 282 x10^3/uL (140-400); RED BLOOD COUNT 3.49 x10^6/uL (3.50-5.40); WHITE BLOOD COUNT 6.4 x10^3/uL (4.0-11.0)
[2021-09-26 16:12] LABS: CALCIUM 8.5 mg/dL (8.5-10.1); CREATININE 0.9 mg/dL (0.6-1.0); GFR 67.4; POTASSIUM 4.1 mmol/L (3.5-5.1)
[2021-09-26 16:17] LABS: ALBUMIN 3.1 g/dL (3.4-5.0); ALBUMIN/GLOBULIN RATIO 0.7 (1.0-1.7); TOTAL BILIRUBIN 0.4 mg/dL (0.2-1.0); TOTAL PROTEIN 7.4 g/dL (6.4-8.2)
[2021-09-26 19:05] VITALS: BP 129/89
== END 2021-09-26 19:35 | disposition home or self-care (01) ==
LOC: ER 14:32
DX: E11.649 Type 2 diabetes mellitus with hypoglycemia without coma (principal); J45.909 Unspecified asthma, uncomplicated; Q90.9 Down syndrome, unspecified; Z90.710 Acquired absence of both cervix and uterus; Z88.2 Allergy status to sulfonamides; Z88.6 Allergy status to analgesic agent
CPT/HCPCS: 36415; 80053; 82947; 85025; 96361; 96374; 99283-25

== ENCOUNTER 2021-10-29 18:02 | Observation (INO) | payer MEDICARE ==
[~2021-10-29] VITALS: Ht 157.5 cm; Wt 130.1 kg
[2021-10-29] MEDS ORDERED: IV NORMAL SALINE 500ML 500 ML IV ONE (18:45)
[2021-10-29] MEDS ORDERED: ACETAMINOPHEN 500 MG TABLET PO ONE (18:45)
--- NOTE | 2021-10-29 19:16 | RAD ---
Exam Date: 10/29/2021 6:35 PM XR CHEST 1V Indication: Reason: SOA / Spl. Instructions: / History: . Comparison: August 25, 2021 FINDINGS/ IMPRESSION: The cardiac silhouette is enlarged with improving mild to moderate congestion. Prominent interstitia l markings are slightly improved, suggestive of pulmonary edema and/or infection. There is no appreciable pleural effusion or pneumothorax. Electronically signed by: Jese Agarwal MD (10/29/2021 7:14 PM) [facility]
[2021-10-29 19:33] LABS: BASO # 0.1 x10^3/uL (0.0-0.2); BASO % 1 % (0-3); EOS # 0.1 x10^3/uL (0.0-0.7); EOS % 2 % (0-3); HEMATOCRIT 34.1 % (36.0-47.0); HEMOGLOBIN 11.2 g/dL (12.0-15.5); LYMPH # 0.7 x10^3/uL (1.0-4.8); LYMPH % 14 % (24-48); MEAN CORPUSCULAR HEMOGLOBIN 32 pg (25-35); MEAN CORPUSCULAR HGB CONC 33 g/dL (31-37); MEAN CORPUSCULAR VOLUME 96 fL (79-100); MONO # 0.4 x10^3/uL (0.0-1.1); MONO % 7 % (0-9); NEUT % 76 % (31-73); PLATELET COUNT 283 x10^3/uL (140-400); RED BLOOD COUNT 3.56 x10^6/uL (3.50-5.40); RED CELL DISTRIBUTION WIDTH 14.9 % (11.5-14.5); WHITE BLOOD COUNT 5.3 x10^3/uL (4.0-11.0)
[2021-10-29 19:38] LABS: CALCIUM 8.6 mg/dL (8.5-10.1); GFR 59.7; POTASSIUM 4.7 mmol/L (3.5-5.1)
[2021-10-29 19:51] LABS: INFLUENZA A PATIENT NEGATIVE (NEGATIVE); INFLUENZA B PATIENT NEGATIVE (NEGATIVE)
[2021-10-29 19:53] LABS: ALBUMIN 3.4 g/dL (3.4-5.0); ALBUMIN/GLOBULIN RATIO 0.8 (1.0-1.7); TOTAL BILIRUBIN 0.2 mg/dL (0.2-1.0); TOTAL PROTEIN 7.5 g/dL (6.4-8.2)
[2021-10-29] MEDS ORDERED: FUROSEMIDE 40 MG/4 ML VIAL IVP ONE (20:45)
[2021-10-29] MEDS ORDERED: ONDANSETRON PF 4 MG/2 ML VIAL. IVP PRN (20:45)
[2021-10-29] MEDS ORDERED: ACETAMINOPHEN 325 MG TABLET PO PRN (20:45)
--- NOTE | 2021-10-29 21:10 | PHYS DOC ---
Past History Past Medical History: Asthma, Diabetes, Other Additional Past Medical Histor: DM I, LYMPHEDEMA, DOWNS SYNDROME, CHROHNS, CELIAC DISEASE Past Surgical History: Hysterectomy, Oophorectomy Smoking: Non-smoker Alcohol Use: None Drug Use: None Adult General Chief Complaint Chief Complaint: SHORTNESS OF BREATH HPI HPI The patient is a 46-year-old female with a history of Down syndrome, insulin- dependent diabetes and "lymphedema." She is on 2.5 L of home oxygen at baseline ever since admission for "pneumonia" (per pt's mother) back in June 2021. Ms. Contreras presents for evaluation of dyspnea with mild exertion and generalized fatigue in association with a dry cough, all with onset over the past couple of weeks. Associated increased leg swelling. No associated fevers, nausea or v omiting, upper respiratory congestion/rhinorrhea, sore throat, chest pain of any kind, abdominal pain of any kind, flank pain, midline back pain, dysuria, hematuria, polyuria or oliguria, changes in bowel habits. Patient is alert and pleasantly and appropriately interactive and in absolutely no acute distress with appropriate vital signs on her typical home oxygen upon initial evaluation here in the emergency department. Review of Systems Review of Systems A 12 point review of systems was completed and was negative except where noted in HPI above. Current Medications Current Medications Current Medications Medications (Trade) Dose Ordered Sig/Harlan Start Time Stop Time Status Last Admin Dose Admin Acetaminophen (Tylenol) 650 mg PRN Q4HRS PRN 10/29/21 20:45 10/30/21 20:44 Furosemide (Lasix) 40 mg 1X ONCE 10/29/21 20:45 10/29/21 20:50 DC Ondansetron HCl (Zofran) 4 mg PRN Q4HRS PRN 10/29/21 20:45 10/30/21 20:44 Sodium Chloride 500 ml @ 0 mls/hr 1X ONCE 10/29/21 18:45 10/29/21 18:46 DC 10/29/21 19:45 500 MLS/HR Allergies Allergies Allergies Coded Allergies Type Severity Reaction Last Updated Verified Sulfa (Sulfonamide Antibiotics) Allergy Intermediate 05/02/14 Yes codeine Allergy Intermediate 05/02/14 Yes strawberry Allergy Intermediate 05/02/14 Yes adhesive Allergy Unknown 06/24/21 Yes gluten Allergy Unknown 06/24/21 Yes Physical Exam Physical Exam 46-year-old female appearing nontoxic and in no acute distress. Head is atraumatic and with abnormal facies consistent with Down syndrome. Neck is supple and nontender. No JVD. Oropharynx is moist. Lungs with mildly diminished breath sounds to all jones, no adventitious sounds heard. There is a normal S1 and S2 without rubs or gallops and capillary refill is appropriate, less than 2 seconds globally. Abdomen is soft, nontender nondistended. Skin is warm and dry without cyanosis or clubbing. No rashes. Psychiatrically, the patient demonstrates appropriate mood and affect and is alert. Evaluation of the extremities reveals BUEs and BLEs neurovascularly intact distally with strength out of 5, sensation intact light touch in all nerve distributions, radial, DP and PT pulses 2+ equal bilaterally, capillary refill less than 2 seconds, hands and feet warm and well-perfused. 2+ pitting peripheral edema of the bilateral lower extremities symmetrically below the level of the mid thighs bilaterally. No calf tenderness or swelling bilaterally. Juliana's test is negative bilaterally. Current Patient Data Vital Signs Vital Signs Date Time Temp Pulse Resp B/P (MAP) Pulse Ox O2 Delivery O2 Flow Rate FiO2 10/29/21 18:40 95 2.0 10/29/21 18:29 99.1 73 24 164/89 (114) Nasal Cannula Lab Results Laboratory Tests Test 10/29/21 19:04 10/29/21 19:06 White Blood Count 5.3 x10^3/uL (4.0-11.0) Red Blood Count 3.56 x10^6/uL (3.50-5.40) Hemoglobin 11.2 g/dL (12.0-15.5) L Hematocrit 34.1 % (36.0-47.0) L Mean Corpuscular Volume 96 fL (79-100) Mean Corpuscular Hemoglobin 32 pg (25-35) Mean Corpuscular Hemoglobin Concent 33 g/dL (31-37) Red Cell Distribution Width 14.9 % (11.5-14.5) H Platelet Count 283 x10^3/uL (140-400) Neutrophils (%) (Auto) 76 % (31-73) H Lymphocytes (%) (Auto) 14 % (24-48) L Monocytes (%) (Auto) 7 % (0-9) Eosinophils (%) (Auto) 2 % (0-3) Basophils (%) (Auto) 1 % (0-3) Neutrophils # (Auto) 4.0 x10^3uL (1.8-7.7) Lymphocytes # (Auto) 0.7 x10^3/uL (1.0-4.8) L Monocytes # (Auto) 0.4 x10^3/uL (0.0-1.1) Eosinophils # (Auto) 0.1 x10^3/uL (0.0-0.7) Basophils # (Auto) 0.1 x10^3/uL (0.0-0.2) Sodium Level 138 mmol/L (136-145) Potassium Level 4.7 mmol/L (3.5-5.1) Chloride Level 100 mmol/L (98-107) Carbon Dioxide Level 32 mmol/L (21-32) Anion Gap 6 (6-14) Blood Urea Nitrogen 15 mg/dL (7-20) Creatinine 1.0 mg/dL (0.6-1.0) Estimated GFR (Cockcroft-Gault) 59.7 BUN/Creatinine Ratio 15 (6-20) Glucose Level 310 mg/dL (70-99) H Lactic Acid Level 1.1 mmol/L (0.4-2.0) Calcium Level 8.6 mg/dL (8.5-10.1) Total Bilirubin 0.2 mg/dL (0.2-1.0) Aspartate Amino Transferase (AST) 18 U/L (15-37) Alanine Aminotransferase (ALT) 28 U/L (14-59) Alkaline Phosphatase 87 U/L (46-116) Troponin I High Sensitivity 13 ng/L (4-50) EG-Aan-X-Type Natriuretic Peptide 281 pg/mL (0-124) H Total Protein 7.5 g/dL (6.4-8.2) Albumin 3.4 g/dL (3.4-5.0) Albumin/Globulin Ratio 0.8 (1.0-1.7) L Influenza Type A (Rapid) Negative (NEGATIVE) Influenza Type B (Rapid) Negative (NEGATIVE) SARS-CoV-2 Antigen (Rapid) Negative (NEGATIVE) EKG EKG Sinus rhythm, rate 70, no acute ST elevation or depression, EP interpretation. Nonischemic tracing. Machine read with prolonged QT but QT interval appears appropriate to me on EKG inspection. Radiology/Procedures Radiology/Procedures XR CHEST 1V Indication: Reason: SOA / Spl. Instructions: / History: . Comparison: August 25, 2021 FINDINGS/ IMPRESSION: The cardiac silhouette is enlarged with improving mild to moderate congestion. Prominent interstitial markings are slightly improved, suggestive of pulmonary edema and/or infection. There is no appreciable pleural effusion or pneumothorax. Electronically signed by: Radha Agarwal MD (10/29/2021 7:14 PM) [facility] DICTATED AND SIGNED BY: RADHA AGARWAL MD DATE: 10/29/211912 CC: ASHVIN ALBERTO MD; SHOAIB ARANDA MD ~MTH0 0 [] Heart Score C/O Chest Pain: No Risk Factors: Risk Factors: DM, Current or recent (<one month) smoker, HTN, HLP, family history of CAD, obesity. Risk Scores: Risk Factors: DM, Current or recent (<one month) smoker, HTN, HLP, family history of CAD, obesity. Course & Med Decision Making Course & Med Decision Making 46-year-old female with Down syndrome and diabetes here for evaluation of dyspnea with exertion and fatigue over the past couple of weeks. Has had an oxygen requirement since June. Appears volume overloaded. Labs benign overall. Overall scenario seems most consistent with heart failure, perhaps diastolic failure given minimally elevated BNP. Has not had an echocardiogram recently per mom. No clear evidence of an infectious process so we will hold on antibiotics for now. Will bring in for further care on an observation basis for IV diuresis, echocardiogram and cardiology evaluation. Patient and her mother are in agreement. Graciously accepted for admission by Dr. Alberto. Fernando Disclaimer Fernando Disclaimer This electronic medical record was generated, in whole or in part, using a voice recognition dictation system. Departure Departure: Impression: Primary Impression: Volume overload Additional Impressions: Chronic respiratory failure Dyspnea on exertion Disposition: ADMITTED INPATIENT Condition: STABLE Referrals: ASHVIN ALBERTO MD (PCP) Problem Qualifiers Primary Impression: Volume overload Hypervolemia type: other Qualified Codes: E87.79 - Other fluid overload Additional Impressions: Chronic respiratory failure Respiratory failure complication: unspecified whether with hypoxia or hypercapnia Qualified Codes: J96.10 - Chronic respiratory failure, unspecified whether with hypoxia or hypercapnia SHOAIB ARANDA MD Oct 29, 2021 21:10
--- NOTE | 2021-10-29 22:56 | EKG ---
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
[2021-10-29 22:59] VITALS: BP 139/82
[2021-10-29] MEDS ORDERED: ESTR1TAB15 PO (23:26)
[2021-10-29] MEDS ORDERED: DIPH25CA58 PO (23:35)
[2021-10-29] MEDS ORDERED: FAMO40TA4 PO (23:35)
[2021-10-29] MEDS ORDERED: BUPR100T8 PO (23:35)
[2021-10-29] MEDS ORDERED: GUAI600T47 PO (23:35)
[2021-10-29] MEDS ORDERED: NALT50TA PO (23:35)
[2021-10-29] MEDS ORDERED: DEXTROSE 50% 25 GM / 50ML DISP.SYRIN. IV PRN (23:45)
[2021-10-30] MEDS ORDERED: INSULIN LISPRO 300 UNITS/3 ML VIAL. SQ ONE
[2021-10-30 01:07] LABS: BACTERIA,URINE FEW /HPF (0-FEW); CLARITY,URINE CLEAR; COLOR,URINE YELLOW; GLUCOSE,URINE 100 mg/dL (NEG); NITRITE,URINE NEG (NEG); SQUAMOUS EPITHELIAL CELL,UR MOD /LPF; UROBILINOGEN,URINE 0.2 mg/dL (0.2 mg/dL); WBC,URINE OCC /HPF (0-4)
[2021-10-30 06:04] LABS: BASO # 0.1 x10^3/uL (0.0-0.2); BASO % 1 % (0-3); EOS # 0.1 x10^3/uL (0.0-0.7); EOS % 2 % (0-3); HEMOGLOBIN 10.9 g/dL (12.0-15.5); LYMPH # 0.9 x10^3/uL (1.0-4.8); LYMPH % 23 % (24-48); MEAN CORPUSCULAR HEMOGLOBIN 32 pg (25-35); MEAN CORPUSCULAR HGB CONC 33 g/dL (31-37); MEAN CORPUSCULAR VOLUME 95 fL (79-100); MONO # 0.6 x10^3/uL (0.0-1.1); MONO % 15 % (0-9); NEUT # 2.4 x10^3uL (1.8-7.7); NEUT % 59 % (31-73); PLATELET COUNT 276 x10^3/uL (140-400); RED BLOOD COUNT 3.47 x10^6/uL (3.50-5.40); RED CELL DISTRIBUTION WIDTH 14.5 % (11.5-14.5); WHITE BLOOD COUNT 4.1 x10^3/uL (4.0-11.0)
[2021-10-30 06:08] LABS: CALCIUM 8.7 mg/dL (8.5-10.1); CREATININE 0.8 mg/dL (0.6-1.0); GFR 77.2
[2021-10-30 06:09] LABS: POTASSIUM 3.4 mmol/L (3.5-5.1)
[2021-10-30 06:14] VITALS: BP 118/78
[2021-10-30] MEDS: INSULIN LISPRO 300 UNITS/3 ML VIAL. SQ SCH ×6 (07:00→22:32)
[2021-10-30] MEDS ORDERED: ELECTROLYTE (NON-ICU) PROTOCOL. MC PRN (09:45)
[2021-10-30] MEDS ORDERED: ALBUTEROL SULFATE 2.5 MG/3 ML NEBU. IH PRN (09:45)
[2021-10-30] MEDS: INSULIN GLARGINE SYRINGE. SQ SCH (10:00)
[2021-10-30] MEDS ORDERED: AZITHROMYCIN 250 MG TABLET. PO ONE (10:00)
[2021-10-30] MEDS ORDERED: ALBUTEROL SULFATE 2.5 MG/3 ML NEBU. NEB PRN (10:15)
[2021-10-30] MEDS ORDERED: GLUCAGON,HUMAN RECOMBINANT 1 MG KIT. IM PRN (10:15)
[2021-10-30] MEDS: MONTELUKAST 10 MG TABLET. PO SCH (10:17)
[2021-10-30] MEDS: FUROSEMIDE 20 MG TABLET PO SCH (10:18)
[2021-10-30] MEDS: LEVOTHYROXINE 75 MCG TABLET PO SCH (10:19)
[2021-10-30] MEDS: NYSTATIN/TRIAMCIN TOPICAL CREAM 15GM TUBE. TP SCH (10:21)
[2021-10-30] MEDS: NALTREXONE HCL 50 MG TABLET PO SCH (10:22)
[2021-10-30 11:20] VITALS: BP 110/68
[2021-10-30] MEDS ORDERED: IPRATRPIUM/ALBUTEROL 0.5/2.5MG 3 ML NEBU. NEB SCH ×2 (12:00)
[2021-10-30 12:14] VITALS: BP 135/57
[2021-10-30] MEDS: IPRATRPIUM/ALBUTEROL 0.5/2.5MG 3 ML NEBU. NEB SCH ×3 (12:23→21:13)
[2021-10-30 14:01] VITALS: BP 108/68
--- NOTE | 2021-10-30 15:43 | PDOC2 ---
CONSULT DOS: DATE: 10/30/21 TIME: 15:37 Reason for Consult: Shortness of breath Referring Physician: Dr. Conklin Chief Complaint Shortness of breath Source: Caregiver, Chart review, Patient Problem List Problems Medical Problems: (1) Chronic respiratory failure Status: Acute (2) Dyspnea on exertion Status: Acute (3) Volume overload Status: Acute History of Present Illness The patient is a 46-year-old female with a history of Down syndrome who is cared for by her mother. She presented to the emergency room with several days of increasing shortness of breath. Initial evaluation included a chest x-ray that showed mild to moderate congestion. Significant lab included a potassium of 3. 4, creatinine of 0.8, troponin of 13 and BNP of 281. EKG showed a sinus rhythm with no acute ischemic changes. Patient was treated with antibiotics and diuretics. She is reportedly feeling mildly better today by her mother. Her shortness of breath has improved mildly. She is having no chest pain. An echocardiogram on 06/29/2021 showed an ejection fraction of 60 to 65% with trace tricuspid regurgitation and a pulmonary artery pressure of 28 mmHg. Pulmonary: Asthma, Pneumonia, Other (Down's syndrome) GI: Other (Celiac disease, Crohn's.) Endocrine: Diabetes Past Surgical History: Hysterectomy Family History: Hypertension Smoke: No ALCOHOL: none Current Medications Current Medications Sodium Chloride 500 ml @ 0 mls/hr 1X ONCE IV Last administered on 10/29/21at 19:45; Start 10/29/21 at 18:45; Stop 10/29/21 at 18:46; Status DC Acetaminophen (Tylenol) 1,000 mg 1X ONCE PO Last administered on 10/29/21at 19:45; Start 10/29/21 at 18:45; Stop 10/29/21 at 18:46; Status DC Ondansetron HCl (Zofran) 4 mg PRN Q4HRS PRN IVP NAUSEA/VOMITING Last administered on 10/30/21at 10:17; Start 10/29/21 at 20:45; Stop 10/30/21 at 20:44 Acetaminophen (Tylenol) 650 mg PRN Q4HRS PRN PO FEVER > 100.3'F; Start 10/29/21 at 20:45; Stop 10/30/21 at 20:44 Furosemide (Lasix) 40 mg 1X ONCE IVP Last administered on 10/29/21at 23:47; Start 10/29/21 at 20:45; Stop 10/29/21 at 20:50; Status DC Guaifenesin (Mucinex Er) 600 mg HS PO Last administered on 10/29/21at 23:47; St art 10/29/21 at 23:30 Insulin Human Lispro (HumaLOG) 6 units 1X ONCE SQ Last administered on 10/30/21at 00:12; Start 10/30/21 at 00:00; Stop 10/30/21 at 00:01; Status DC Insulin Human Lispro (HumaLOG) 0-9 UNITS TIDWMEALS SQ Last administered on 10/30/21at 12:24; Start 10/30/21 at 08:00 Dextrose (Dextrose 50%-Water Syringe) 12.5 gm PRN Q15MIN PRN IV SEE COMMENTS; Start 10/29/21 at 23:45 Albuterol Sulfate (Ventolin) 8.6 mg Q2HR PRN IH sob; Start 10/30/21 at 09:45; Stop 10/30/21 at 10:10; Status DC Bupropion HCl (Wellbutrin Sr) 100 mg HS PO ; Start 10/30/21 at 21:00 Diphenhydramine HCl (Benadryl) 25 mg QHS PO ; Start 10/30/21 at 21:00 Estradiol (Estrace) 1 mg DAILY PO ; Start 10/31/21 at 09:00 Gabapentin (Neurontin) 100 mg DAILY PO ; Start 10/31/21 at 09:00 Albuterol/ Ipratropium (Duoneb) 3 ml RTQID NEB ; Start 10/30/21 at 12:00; Stop 10/30/21 at 10:10; Status DC Levothyroxine Sodium (Synthroid) 75 mcg DAILY06 PO Last administered on 10/30/21at 10:19; Start 10/30/21 at 10:00 Montelukast Sodium (Singulair) 10 mg DAILY PO Last administered on 10/30/21at 10:17; Start 10/30/21 at 10:00 Naltrexone HCl (ReVia) 50 mg DAILY PO Last administered on 10/30/21at 10:22; Start 10/30/21 at 10:00 Nystatin (Nystop) 1 liv BID TP ; Start 10/30/21 at 21:00; Stop 10/30/21 at 09: 53; Status DC Nystatin/ Triamcinolone Acetonide (Mycolog Ii) 1 liv BID TP Last administered on 10/30/21at 10:21; Start 10/30/21 at 21:00 Famotidine (Pepcid) 40 mg QHS PO ; Start 10/30/21 at 21:00 Ferrous Sulfate (Feosol) 325 mg DAILY PO ; Start 10/31/21 at 09:00 Fluoxetine HCl (PROzac) 20 mg DAILY PO Last administered on 10/30/21at 10:18; Start 10/30/21 at 10:00 Fluticasone Propionate (Flonase) 2 spray DAILY NS Last administered on 10/30/21at 10:21; Start 10/31/21 at 09:00 Non-Formulary Medication (Fluticasone/ Salmeterol (Advair 250-50 Diskus)) 1 puff BID IH ; Start 10/30/21 at 21:00; Stop 10/30/21 at 10:11; Status DC Glucagon (Glucagen Kit) 1 mg PRN 1X PRN IM LOW BLOOD SUGAR; Start 10/30/21 at 10:15 Insulin Human Lispro (HumaLOG) 5 units QIDACHS SQ Last administered on 10/30/21at 12:23; Start 10/30/21 at 11:30 Insulin Glargine (Lantus Syringe) 25 unit DAILY SQ Last administered on 10/30/21at 10:00; Start 10/30/21 at 10:00 Albuterol/ Ipratropium (Duoneb) 3 ml RTQID NEB ; Start 10/30/21 at 12:00; Stop 10/30/21 at 09:50; Status DC Ceftriaxone Sodium 1 gm/ Sodium Chloride 50 ml @ 100 mls/hr Q24H IV Last administered on 10/30/21at 10:22; Start 10/30/21 at 10:00 Furosemide (Lasix) 20 mg DAILY PO Last administered on 10/30/21at 10:18; Start 10/30/21 at 09:45 Info (Non-Icu Electrolyte Protocol) 1 ea CONT PRN PRN MC PER PROTOCOL; Start 10/30/21 at 09:45 Azithromycin (Zithromax) 250 mg DAILY PO ; Start 10/31/21 at 09:00 Azithromycin (Zithromax) 500 mg 1X ONCE PO Last administered on 10/30/21at 10:18; Start 10/30/21 at 10:00; Stop 10/30/21 at 10:01; Status DC Albuterol/ Ipratropium (Duoneb) 3 ml RTQID NEB Last administered on 10/30/21at 12:23; Start 10/30/21 at 12:00 Albuterol Sulfate (Ventolin) 2.5 mg PRN Q2HRS PRN NEB SHORTNESS OF BREATH; Start 10/30/21 at 10:15 Lactobacillus Rhamnosus (Culturelle) 1 cap BID PO ; Start 10/30/21 at 21:00 Active Scripts Active Glucagon Emergency Kit (Glucagon,Human Recombinant) 1 Mg Kit 1 Mg IM PRN Synthroid (Levothyroxine Sodium) 75 Mcg Tablet 75 Mcg PO DAILY06 30 Days Duoneb 0.5-3(2.5) Mg/3 Ml (Albuterol/Ipratropium) 3 Ml Ampul.neb 3 Ml NEB RTQID 30 Days Nystop (Nystatin) 60 Gm Powder 1 Liv TP BID Reported Benadryl (Diphenhydramine Hcl) 25 Mg Capsule 1 Cap PO QHS 30 Days Mucinex (Guaifenesin) 600 Mg Tablet.er 600 Mg PO HS Naltrexone Hcl 50 Mg Tablet 50 Mg PO DAILY Bupropion Hcl Sr (Bupropion Hcl) 100 Mg Tablet.er 100 Mg PO HS Famotidine 40 Mg Tablet 40 Mg PO HS Estradiol 1 Mg Tablet 1 Tab PO DAILY Gabapentin 100 Mg Capsule 100 Mg PO DAILY Iron (Ferrous Sulfate) 325 Mg Capsule.er 325 Mg PO DAILY last dose this morning next dose tomorrow Advair 250-50 Diskus (Fluticasone/Salmeterol) 1 Each Disk.w.dev 1 Puff IH BID resume tonight Fluoxetine Hcl 20 Mg Tablet 1 Tab PO DAILY last dose this morning next dose tomorrow Montelukast Sodium Tablet (Montelukast Sodium) 10 Mg Tablet 1 Tab PO DAILY last dose this morning next dose tomorrow Nystatin-Triamcinolone Cream (Nystatin/Triamcin) 15 Gm Cream..g. 1 Applic TOP BID last dose today next dose tonight Lantus Solostar (Insulin Glargine,Hum.rec.anlog) 100 Unit/1 Ml Insuln.pen 25 Unit SQ DAILY last dose this morning next dose tomorrow Novolog (Insulin Aspart) 100 Unit/1 Ml Cartridge 0-8 Unit SQ QIDACHS last dose with lunch next dose with supper Flonase Allergy Relief (Fluticasone Propionate) 9.9 Ml Underwood.susp 2 Sprays NS DAILY last dose this morning next dose tomorrow Proair Hfa Inhaler (Albuterol Sulfate) 8.5 Gm Hfa.aer.ad 2 Puff IH PRN Q4-6HRS LAST DOSE GIVEN: DATE: TIME: NEXT DOSE DUE: DATE: TIME: Allergies: Coded Allergies: Sulfa (Sulfonamide Antibiotics) (Verified Allergy, Intermediate, 05/02/14) codeine (Verified Allergy, Intermediate, 05/02/14) strawberry (Verified Allergy, Intermediate, 05/02/14) adhesive (Verified Allergy, Unknown, 06/24/21) gluten (Verified Allergy, Unknown, 06/24/21) Respiratory: YES: Shortness of breath, SOB with excertion General: mild distress Lungs: Other (Mildly decreased breath sounds) Heart: Regular rate Abdomen: Normal bowel sounds VITALS Vital Signs Date Time Temp Pulse Resp B/P (MAP) Pulse Ox O2 Delivery O2 Flow Rate FiO2 10/30/21 14:01 97.7 75 20 108/68 (81) 95 Nasal Cannula 3.0 Labs Laboratory Tests Test 10/29/21 19:04 10/29/21 19:06 10/30/21 00:45 10/30/21 04:01 White Blood Count 5.3 x10^3/uL (4.0-11.0) Red Blood Count 3.56 x10^6/uL (3.50-5.40) Hemoglobin 11.2 g/dL (12.0-15.5) Hematocrit 34.1 % (36.0-47.0) Mean Corpuscular Volume 96 fL (79-100) Mean Corpuscular Hemoglobin 32 pg (25-35) Mean Corpuscular Hemoglobin Concent 33 g/dL (31-37) Red Cell Distribution Width 14.9 % (11.5-14.5) Platelet Count 283 x10^3/uL (140-400) Neutrophils (%) (Auto) 76 % (31-73) Lymphocytes (%) (Auto) 14 % (24-48) Monocytes (%) (Auto) 7 % (0-9) Eosinophils (%) (Auto) 2 % (0-3) Basophils (%) (Auto) 1 % (0-3) Neutrophils # (Auto) 4.0 x10^3uL (1.8-7.7) Lymphocytes # (Auto) 0.7 x10^3/uL (1.0-4.8) Monocytes # (Auto) 0.4 x10^3/uL (0.0-1.1) Eosinophils # (Auto) 0.1 x10^3/uL (0.0-0.7) Basophils # (Auto) 0.1 x10^3/uL (0.0-0.2) Sodium Level 138 mmol/L (136-145) Potassium Level 4.7 mmol/L (3.5-5.1) Chloride Level 100 mmol/L (98-107) Carbon Dioxide Level 32 mmol/L (21-32) Anion Gap 6 (6-14) Blood Urea Nitrogen 15 mg/dL (7-20) Creatinine 1.0 mg/dL (0.6-1.0) Estimated GFR (Cockcroft-Gault) 59.7 BUN/Creatinine Ratio 15 (6-20) Glucose Level 310 mg/dL (70-99) Lactic Acid Level 1.1 mmol/L (0.4-2.0) Calcium Level 8.6 mg/dL (8.5-10.1) Total Bilirubin 0.2 mg/dL (0.2-1.0) Aspartate Amino Transf (AST/SGOT) 18 U/L (15-37) Alanine Aminotransferase (ALT/SGPT) 28 U/L (14-59) Alkaline Phosphatase 87 U/L (46-116) Troponin I High Sensitivity 13 ng/L (4-50) GG-Awj-C-Type Natriuretic Peptide 281 pg/mL (0-124) Total Protein 7.5 g/dL (6.4-8.2) Albumin 3.4 g/dL (3.4-5.0) Albumin/Globulin Ratio 0.8 (1.0-1.7) Influenza Type A (Rapid) Negative (NEGATIVE) Influenza Type B (Rapid) Negative (NEGATIVE) SARS-CoV-2 Antigen (Rapid) Negative (NEGATIVE) Urine Collection Type Unknown Urine Color Yellow Urine Clarity Clear Urine pH 6.5 Urine Specific Plover 1.020 Urine Protein Neg (NEG-TRACE) Urine Glucose (UA) 100 mg/dL (NEG) Urine Ketones (Stick) Neg mg/dL (NEG) Urine Blood Trace (NEG) Urine Nitrite Neg (NEG) Urine Bilirubin Neg (NEG) Urine Urobilinogen Dipstick 0.2 mg/dL (0.2 mg/dL) Urine Leukocyte Esterase Neg (NEG) Urine RBC 1-2 /HPF (0-2) Urine WBC Occ /HPF (0-4) Urine Squamous Epithelial Cells Mod /LPF Urine Bacteria Few /HPF (0-FEW) Glucose (Fingerstick) 121 mg/dL (70-99) Test 10/30/21 05:49 10/30/21 07:51 10/30/21 09:55 10/30/21 11:49 White Blood Count 4.1 x10^3/uL (4.0-11.0) Red Blood Count 3.47 x10^6/uL (3.50-5.40) Hemoglobin 10.9 g/dL (12.0-15.5) Hematocrit 33.0 % (36.0-47.0) Mean Corpuscular Volume 95 fL (79-100) Mean Corpuscular Hemoglobin 32 pg (25-35) Mean Corpuscular Hemoglobin Concent 33 g/dL (31-37) Red Cell Distribution Width 14.5 % (11.5-14.5) Platelet Count 276 x10^3/uL (140-400) Neutrophils (%) (Auto) 59 % (31-73) Lymphocytes (%) (Auto) 23 % (24-48) Monocytes (%) (Auto) 15 % (0-9) Eosinophils (%) (Auto) 2 % (0-3) Basophils (%) (Auto) 1 % (0-3) Neutrophils # (Auto) 2.4 x10^3uL (1.8-7.7) Lymphocytes # (Auto) 0.9 x10^3/uL (1.0-4.8) Monocytes # (Auto) 0.6 x10^3/uL (0.0-1.1) Eosinophils # (Auto) 0.1 x10^3/uL (0.0-0.7) Basophils # (Auto) 0.1 x10^3/uL (0.0-0.2) Sodium Level 134 mmol/L (136-145) Potassium Level 3.4 mmol/L (3.5-5.1) Chloride Level 101 mmol/L (98-107) Carbon Dioxide Level 33 mmol/L (21-32) Anion Gap 0 (6-14) Blood Urea Nitrogen 14 mg/dL (7-20) Creatinine 0.8 mg/dL (0.6-1.0) Estimated GFR (Cockcroft-Gault) 77.2 Glucose Level 101 mg/dL (70-99) Calcium Level 8.7 mg/dL (8.5-10.1) Glucose (Fingerstick) 102 mg/dL (70-99) 234 mg/dL (70-99) D-Dimer (Leticia) 0.81 mg/L (0.00-0.50) Images Chest x-ray and recent echo as above. Assessment/Plan 1. Shortness of breath. Chest x-ray with mild to moderate congestion. Echocardiogram approximately 5 months ago shows intact LV systolic function with trace tricuspid regurgitation and a pulmonary artery pressure at 28 mmHg. I agree with mild diuresis. Patient has also been placed on antibiotics. We will continue to monitor with morning lab. 2. Down syndrome. Continue baseline medications. 3. Diabetes mellitus. Continuing baseline home medications. JATIN DAMON MD Oct 30, 2021 15:43
[2021-10-30 20:08] VITALS: BP 107/65
[2021-10-30] MEDS ORDERED: FAMOTIDINE 20 MG TABLET PO SCH (21:00)
[2021-10-30] MEDS ORDERED: diphenhydrAMINE HCL 25 MG CAPSULE PO SCH (21:00)
[2021-10-30] MEDS ORDERED: buPROPion SR 100 MG TABLET.SA. PO SCH (21:00)
[2021-10-30] MEDS ORDERED: NYSTATIN TOPICAL POWDER 15GM BOTTLE. TP SCH (21:00)
[2021-10-30] MEDS ORDERED: NON FORMULARY ITEM (Fluticasone/Salmeterol (Advair 250-50 Diskus) 1 PUFF) IH SCH (21:00)
--- NOTE | 2021-10-30 21:29 | PN ---
DATE: 10/30/2021 SUBJECTIVE: A 46-year-old female, in with increased exertional dyspnea as well as orthopnea and leg swelling. Chest x-ray shows the possibility of congestive heart failure. The patient was noted to be markedly hypoglycemic. In any case, the patient has made good progress with diuresis today. Blood pressure down to 108/70, respiratory rate 20, pulse 75, afebrile, 3 liters at 95, which is an improvement from where she was. When she first came in, she was running a low-grade temperature of 99.1. Chest x-ray did show the possibility of possible infection and because of this low-grade temperature, it was noted to have a possible infectious etiology. Blood sugar was also elevated to 310. Coag studies showed a D-dimer 0.81, that was not called. The patient otherwise is resting fairly comfortably, making fairly good progress, we started her on IV antibiotics and oral antibiotics because of the situation with her temperature. Chest x-ray showing a pneumonic process and the fact that the patient was short of breath. We will go ahead and put her on Lovenox and consider a CTA in the morning to help her with possible DVT. CLAIRE/MADELIN DR: CLAIRE/zak TID: [id number]
[2021-10-30] MEDS: ENOXAPARIN ** NOTE DOSE ** SYRINGE SQ SCH (22:29)
[2021-10-30] MEDS: LACTOBACILLUS RHAMNOSUS GG 1 CAPSULE. PO SCH (22:30)
[2021-10-31] MEDS: IPRATRPIUM/ALBUTEROL 0.5/2.5MG 3 ML NEBU. NEB SCH ×2 (05:00→09:06)
[2021-10-31] MEDS: LEVOTHYROXINE 75 MCG TABLET PO SCH (06:35)
[2021-10-31 07:40] LABS: CALCIUM 8.3 mg/dL (8.5-10.1); CREATININE 0.8 mg/dL (0.6-1.0); GFR 77.2; POTASSIUM 4.3 mmol/L (3.5-5.1)
[2021-10-31] MEDS ORDERED: AZITHROMYCIN 250 MG TABLET. PO SCH (09:00)
[2021-10-31] MEDS ORDERED: ESTRADIOL 1 MG TABLET PO SCH (09:00)
[2021-10-31] MEDS ORDERED: GABAPENTIN 100 MG CAPSULE. PO SCH (09:00)
[2021-10-31] MEDS ORDERED: FLUTICASONE 50MCG/NASAL SPRAY 16GM BOTTLE. NS SCH (09:00)
[2021-10-31] MEDS ORDERED: FERROUS SULFATE 325 MG TABLET. PO SCH (09:00)
[2021-10-31] MEDS: NALTREXONE HCL 50 MG TABLET PO SCH (09:00)
[2021-10-31] MEDS ORDERED: ENOXAPARIN ** NOTE DOSE ** SYRINGE SQ SCH (09:00)
[2021-10-31] MEDS: LACTOBACILLUS RHAMNOSUS GG 1 CAPSULE. PO SCH (09:04)
[2021-10-31] MEDS: MONTELUKAST 10 MG TABLET. PO SCH (09:04)
[2021-10-31] MEDS: FUROSEMIDE 20 MG TABLET PO SCH (09:04)
[2021-10-31] MEDS: NYSTATIN/TRIAMCIN TOPICAL CREAM 15GM TUBE. TP SCH (09:07)
[2021-10-31] MEDS: INSULIN GLARGINE SYRINGE. SQ SCH (09:14)
[2021-10-31] MEDS: INSULIN LISPRO 300 UNITS/3 ML VIAL. SQ SCH ×4 (09:15→12:00)
[2021-10-31] MEDS: ENOXAPARIN ** NOTE DOSE ** SYRINGE SQ SCH (09:21)
[2021-10-31] MEDS ORDERED: FURO20TA3 PO (09:21)
[2021-10-31] MEDS ORDERED: LEVO500T9 PO (09:21)
--- NOTE | 2021-10-31 17:25 | DS ---
HOSPITAL COURSE: A 46-year-old female came in with respiratory distress. She was having problems breathing in the office, her oxygen went down to 85% or so with minimal exertion without oxygen. She required oxygen. She was placed on oxygen and x-rays demonstrated a possible infiltrative process and I believe that was a conferring factor. She also had quite a bit of fluid overload. It was noted that the procalcitonin was elevated showing a probable cause for a pneumonic process being diagnosed. She has recently had a CTA, which was negative. She has chronic lymphedema and she uses lymphedema compression boots ___ the slight elevation in the D-dimer. Hemoglobin 10.9, hematocrit 33, and white count 4. The patient's blood sugars are basically all within range at times; however, when she did not follow her diet went up to in the 200. She was COVID and influenza negative. The patient made good progress with IV antibiotic therapy and some IV Lasix. She was also seen by Dr. Plaza noted agricultural specialist who felt that the patient was stable and could be followed up as an outpatient for which she will be. FINAL DIAGNOSES: Includes that of pneumonia of unspecified etiology, community acquired as well acute on top of chronic diastolic heart failure, morbid obesity, lymphedema, type 2 diabetes, peripheral neuropathy, anemia of chronic disease, Down syndrome. The patient will be discharged home with her mother and see MRAD and diabetic diet and follow up accordingly. MODESTA BYNUM: Felecia TID: [id number]
== END 2021-10-31 17:48 | disposition home or self-care (01) ==
LOC: ER 18:02 → 1 SOUTH 20:34
PROVIDERS: ADMIT Family Medicine; ATTEND Family Medicine
DX: E87.70 Fluid overload, unspecified (principal); Z20.822 Contact with and (suspected) exposure to COVID-19; J96.10 Chronic respiratory failure, unspecified whether with hypoxia or hypercapnia; E10.649 Type 1 diabetes mellitus with hypoglycemia without coma; I11.0 Hypertensive heart disease with heart failure; I50.32 Chronic diastolic (congestive) heart failure; J18.9 Pneumonia, unspecified organism; J45.909 Unspecified asthma, uncomplicated; I89.0 Lymphedema, not elsewhere classified; K50.90 Crohn's disease, unspecified, without complications; K90.0 Celiac disease; E66.01 Morbid (severe) obesity due to excess calories; D63.8 Anemia in other chronic diseases classified elsewhere; Q90.9 Down syndrome, unspecified; Z79.4 Long term (current) use of insulin; Z90.710 Acquired absence of both cervix and uterus; Z79.899 Other long term (current) drug therapy; Z98.890 Other specified postprocedural states; Z68.43 Body mass index [BMI] 50.0-59.9, adult
CPT/HCPCS: 36415; 71045; 80048; 80053; 81001; 82947; 83605; 83880; 84145; 84484; 85025; 85379; 87040; 87428; 93005; 94640; 96365; 96366; 96372; 96375; 96376; 97161; 97165; 97530; 97535; 99285; G0378; J0696; J1650; J1815; J1940; J2405; J7040; Q0163; G0379

== ENCOUNTER 2021-12-07 18:35 | Emergency (ER) | payer MEDICARE ==
[~2021-12-07] VITALS: Ht 157.5 cm; Wt 130.1 kg
[~2021-12-07 18:35] MED LIST changes: +BUPR100T16 PO; +DIPH25CA58 PO; +ESTR1TAB15 PO; +FAMO40TA4 PO; +GUAI600T47 PO; +LEVO500T9 PO; +NALT50TA PO
[2021-12-07 19:07] VITALS: BP 115/78
[2021-12-07] MEDS ORDERED: IV NORMAL SALINE 1,000ML 1,000 ML IV ONE (19:15)
--- NOTE | 2021-12-07 19:19 | PHYS DOC ---
Past History Past Medical History: Asthma, Diabetes, Other Additional Past Medical Histor: DM I, LYMPHEDEMA, DOWNS SYNDROME, CHROHNS, CELIAC DISEASE (EMMANUEL HUGHES APRN) Past Surgical History: Hysterectomy, Oophorectomy (EMMANUEL HUGHES APRN) Smoking: Non-smoker Alcohol Use: None Drug Use: None (EMMANUEL HUGHES APRN) General Adult EDM: Chief Complaint: RECTAL BLEED HPI: HPI: Patient is a 46-year-old female who presents to the emergency department with rectal bleeding that started on November 27. Patient's mother reports that it started as really light bleeding but has increased. She reports that it is bright red. Patient does not have a history of rectal bleeding is not on any blood thinners. She does have a history of Crohn's, celiac, diabetes, asthma and Down syndrome. Patient reports that she does experience lower abdominal pain with bowel movements. She denies any abdominal pain at this time. She also denies fevers, nausea, vomiting, diarrhea, urinary complaints. Patient wears 2 to 3 L via nasal cannula at all times at home. (EMMANUEL HUGHES APRN) Review of Systems: Review of Systems: Constitutional: See HPI Respiratory: see HPI GI: See HPI : See HPI Endocrine: see HPI (EMMANUEL HUGHES APRN) Current Medications: Current Meds: Current Medications Medications (Trade) Dose Ordered Sig/Harlan Start Time Stop Time Status Last Admin Dose Admin Sodium Chloride 1,000 ml @ 1,000 mls/hr 1X ONCE 12/07/21 19:15 12/07/21 20:14 UNV (EMMANUEL HUGHES APRN) Allergies: Allergies: Allergies Coded Allergies Type Severity Reaction Last Updated Verified Sulfa (Sulfonamide Antibiotics) Allergy Intermediate 05/02/14 Yes adhesive Allergy Intermediate 10/31/21 Yes codeine Allergy Intermediate 05/02/14 Yes gluten Allergy Intermediate 10/31/21 Yes strawberry Allergy Intermediate 05/02/14 Yes (EMMANUEL HUGHES APRN) Physical Exam: PE: Constitutional: Well developed, well nourished, no acute distress, non-toxic appearance. [] HENT: Normocephalic, atraumatic, bilateral external ears normal, oropharynx moist, no oral exudates, nose normal. [] Eyes: PERRL, EOMI, conjunctiva normal, no discharge. [] Neck: Normal range of motion, no stridor Cardiovascular:Heart rate regular rhythm, no murmur [] Lungs & Thorax: Bilateral breath sounds clear to auscultation [] Abdomen: Bowel sounds normal, soft, obese, left lower quadrant tenderness with palpation, no masses, no pulsatile masses. [] Skin: Warm, dry, no erythema, no rash. [] Back: No tenderness, no CVA tenderness. [] Extremities: No tenderness, no cyanosis, no clubbing, ROM intact, no edema. [] Neurologic: Alert and oriented X 3, normal motor function, normal sensory function, no focal deficits noted. [] Psychologic: Affect normal, judgement normal, mood normal. [] (EMMANUEL HUGHES APRN) Current Patient Data: Labs: Laboratory Tests Test 12/07/21 19:45 12/07/21 20:55 White Blood Count 5.7 x10^3/uL Red Blood Count 3.96 x10^6/uL Hemoglobin 12.1 g/dL Hematocrit 36.9 % Mean Corpuscular Volume 93 fL Mean Corpuscular Hemoglobin 31 pg Mean Corpuscular Hemoglobin Concent 33 g/dL Red Cell Distribution Width 15.4 % Platelet Count 282 x10^3/uL Neutrophils (%) (Auto) 67 % Lymphocytes (%) (Auto) 20 % Monocytes (%) (Auto) 9 % Eosinophils (%) (Auto) 2 % Basophils (%) (Auto) 2 % Neutrophils # (Auto) 3.8 x10^3uL Lymphocytes # (Auto) 1.1 x10^3/uL Monocytes # (Auto) 0.5 x10^3/uL Eosinophils # (Auto) 0.1 x10^3/uL Basophils # (Auto) 0.1 x10^3/uL Sodium Level 140 mmol/L Potassium Level 3.9 mmol/L Chloride Level 101 mmol/L Carbon Dioxide Level 33 mmol/L Anion Gap 6 Blood Urea Nitrogen 17 mg/dL Creatinine 1.0 mg/dL Estimated GFR (Cockcroft-Gault) 59.7 BUN/Creatinine Ratio 17 Glucose Level 81 mg/dL Calcium Level 9.0 mg/dL Total Bilirubin 0.3 mg/dL Aspartate Amino Transf (AST/SGOT) 20 U/L Alanine Aminotransferase (ALT/SGPT) 21 U/L Alkaline Phosphatase 63 U/L Total Protein 7.6 g/dL Albumin 3.3 g/dL Albumin/Globulin Ratio 0.8 Lipase 54 U/L Glucose (Fingerstick) 50 mg/dL Current Medications Medications (Trade) Dose Ordered Sig/Harlan Route PRN Reason Start Time Stop Time Status Last Admin Dose Admin Sodium Chloride 1,000 ml @ 1,000 mls/hr 1X ONCE IV 12/07/21 19:15 12/07/21 19:19 DC Iohexol (Omnipaque 300 Mg/ml) 75 ml 1X ONCE IV 12/07/21 19:30 12/07/21 19:31 DC 12/07/21 20:10 Dextrose (Dextrose 50%-Water Syringe) 25 gm 1X ONCE IV 12/07/21 21:00 12/07/21 21:01 DC (EMMANUEL HUGHES APRN) EKG: EKG: [] (EMMANUEL HUGHES APRN) Radiology/Procedures: Radiology/Procedures: []PROCEDURE: CT ABD PELV W/ IV CONTRST ONLY EXAM: CT Abdomen and Pelvis with IV contrast CLINICAL HISTORY: llq pain, rectal bleeding COMPARISON: none TECHNIQUE: Helical CT of the abdomen and pelvis was performed following the administration of intravenous contrast. Axial, coronal and sagittal reformatted images were generated. PQRS compliance statement - One or more of the following individualized dose reduction techniques were utilized for this study: 1. Automated exposure control 2. Adjustment of the mA and/or kV according to patient size 3. Use of iterative reconstruction technique FINDINGS: Lower Chest: Patchy airspace opacities or lungs possibly atelectasis or developing consolidation. Abdomen and Pelvis: Focal low-attenuation along the falciform ligament likely focal fatty infiltration. Liver measures 23 cm in length. Gallbladder is normal. No biliary ductal dilatation. Pancreas, spleen and adrenal glands are unremarkable. Symmetric nephrograms. No focal lesion. No hydronephrosis. No hydroureter. Bladder is markedly distended which can be correlated with possible voluntary or involuntary causes of urinary retention. Aorta is normal in caliber. Moderate colonic stool content is seen. Appendix is not convincingly seen. No pericecal inflammatory change. No small or large bowel dilatation. No bowel obstruction. No abdominal or pelvic lymphadenopathy. No abdominal or pelvic ascites. Bones: Moderate degenerative changes of the spine. No aggressive osseous lesion. Bilateral L5 pars defects are seen, chronic. IMPRESSION: 1. Moderate to large volume colonic stool content. No bowel obstruction. 2. Hepatomegaly. Hepatic hypoattenuation, fatty liver. 3. Bladder is markedly distended which can be correlated with possible voluntary or involuntary causes of urinary retention. 4. Patchy airspace opacities or lungs possibly atelectasis or developing consolidation. Electronically signed by: Krishan Mcgovern MD (12/07/2021 9:02 PM) [facility] DICTATED AND SIGNED BY: KRISHAN MCGOVERN MD DATE: 12/07/212053 CC: ASHVIN ALBERTO MD; EMMANUEL HUGHES APRN ~ (EMMANUEL HUGHES APRN) Heart Score: C/O Chest Pain: N/A Risk Factors: Risk Factors: DM, Current or recent (<one month) smoker, HTN, HLP, family history of CAD, obesity. Risk Scores: Score 0 - 3: 2.5% MACE over next 6 weeks - Discharge Home Score 4 - 6: 20.3% MACE over next 6 weeks - Admit for Clinical Observation Score 7 - 10: 72.7% MACE over next 6 weeks - Early Invasive Strategies (EMMANUEL HUGHES APRN) Course & Med Decision Making: Course & Med Decision Making Pertinent Labs and Imaging studies reviewed. (See chart for details) Patient presents to the emergency department with rectal bleeding that started on November 27. She reports pain with bowel movements in the right lower quadrant and is tender in her left lower quadrant. Work-up in the ER consisted of blood work including lipase, urinalysis and CT imaging of abdomen and pelvis. Patient's blood work is unremarkable, negative lipase. CT scan shows large amount of stool and fatty liver. Its likely that patient's constipation is attributing to her rectal bleeding and abdominal pain when she has a bowel movement. Patient advised to take MiraLAX at home. She was given GI follow-up. I discussed with patient all findings and diagnostic testing as well as the need to follow-up with PCP for further evaluation and treatment or return to the ER if any new or worsening symptoms. Strict return precautions were also discussed at length. Patient voiced understanding and agreement with the plan. Patient is hemodynamically stable at the time of disposition. (EMMANUEL HUGHES APRN) Dragon Disclaimer: Dragon Disclaimer: This electronic medical record was generated, in whole or in part, using a voice recognition dictation system. (EMMANUEL HUGHES APRN) Attending Co-Sign The patient was seen and interviewed as well as examined at the bedside. The chart was reviewed. The case was discussed. Agree with the plan of care. (HAYLIE HURD DO) Departure Departure: Impression: Primary Impression: Constipation Qualified Codes: K59.00 - Constipation, unspecified Disposition: HOME / SELF CARE / HOMELESS Condition: GOOD Referrals: ASHVIN ALEBRTO MD (PCP) RAQUEL SABILLON MD Patient Instructions: Constipation, Adult Additional Instructions: You are seen in the emergency department today for rectal bleeding. CT imaging showed constipation which could be a cause of your rectal bleeding. Please take MiraLAX daily. Increase your fluids. Follow-up with your primary care provider tomorrow regarding your ER visit. Return to the emergency department if you develop worsening of your abdominal pain, worsening of your rectal bleeding, high fevers refractory to treatment, intractable nausea or vomiting or any nursing concerns. You are being discharged home with information for a GI doctor which you can follow-up with if you continue to have your symptoms. EMMANUEL HUGHES APRN Dec 07, 2021 19:19 HAYLIE HURD DO Dec 09, 2021 05:52
[2021-12-07] MEDS ORDERED: IOHEXOL 300 MG/ML 75 ML VIAL. IV ONE (19:30)
[2021-12-07 20:29] LABS: BASO # 0.1 x10^3/uL (0.0-0.2); BASO % 2 % (0-3); EOS # 0.1 x10^3/uL (0.0-0.7); EOS % 2 % (0-3); HEMATOCRIT 36.9 % (36.0-47.0); HEMOGLOBIN 12.1 g/dL (12.0-15.5); LYMPH # 1.1 x10^3/uL (1.0-4.8); LYMPH % 20 % (24-48); MEAN CORPUSCULAR HEMOGLOBIN 31 pg (25-35); MEAN CORPUSCULAR HGB CONC 33 g/dL (31-37); MEAN CORPUSCULAR VOLUME 93 fL (79-100); MONO # 0.5 x10^3/uL (0.0-1.1); MONO % 9 % (0-9); NEUT # 3.8 x10^3uL (1.8-7.7); NEUT % 67 % (31-73); PLATELET COUNT 282 x10^3/uL (140-400); RED BLOOD COUNT 3.96 x10^6/uL (3.50-5.40); RED CELL DISTRIBUTION WIDTH 15.4 % (11.5-14.5); WHITE BLOOD COUNT 5.7 x10^3/uL (4.0-11.0)
[2021-12-07 20:38] LABS: GFR 59.7; POTASSIUM 3.9 mmol/L (3.5-5.1)
[2021-12-07 20:44] LABS: ALBUMIN 3.3 g/dL (3.4-5.0); ALBUMIN/GLOBULIN RATIO 0.8 (1.0-1.7); TOTAL BILIRUBIN 0.3 mg/dL (0.2-1.0); TOTAL PROTEIN 7.6 g/dL (6.4-8.2)
[2021-12-07] MEDS ORDERED: DEXTROSE 50% 25 GM / 50ML DISP.SYRIN. IV ONE (21:00)
--- NOTE | 2021-12-07 21:04 | RAD ---
EXAM: CT Abdomen and Pelvis with IV contrast CLINICAL HISTORY: llq pain, rectal bleeding COMPARISON: none TECHNIQUE: Helical CT of the abdomen and pelvis was performed following the administration of intrave nous contrast. Axial, coronal and sagittal reformatted images were generated. PQRS compliance statement - One or more of the following individualized dose reduction techniques wer e utilized for this study: 1. Automated exposure control 2. Adjustment of the mA and/or kV according to patient size 3. Use of iterative reconstruction technique FINDINGS: Lower Chest: Patchy airspace opacities or lungs possibly atelectasis or developing consolidation. Abdomen and Pelvis: Focal low-attenuation along the falciform ligament likely focal fatty infiltration. Liver measures 23 cm in length. Gallbladder is normal. No biliary ductal dilatation. Pancreas, spleen and adrenal glan ds are unremarkable. Symmetric nephrograms. No focal lesion. No hydronephrosis. No hydroureter. Bladd er is markedly distended which can be correlated with possible voluntary or involuntary causes of uri nary retention. Aorta is normal in caliber. Moderate colonic stool content is seen. Appendix is not convincingly seen . No pericecal inflammatory change. No small or large bowel dilatation. No bowel obstruction. No abdominal or pelvic lymphadenopathy. No abdominal or pelvic ascites. Bones: Moderate degenerative changes of the spine. No aggressive osseous lesion. Bilateral L5 pars defects a re seen, chronic. IMPRESSION: 1. Moderate to large volume colonic stool content. No bowel obstruction. 2. Hepatomegaly. Hepatic hypoattenuation, fatty liver. 3. Bladder is markedly distended which can be correlated with possible voluntary or involuntary caus es of urinary retention. 4. Patchy airspace opacities or lungs possibly atelectasis or developing consolidation. Electronically signed by: Krishan De Anda MD (12/07/2021 9:02 PM) [email or web address]
[2021-12-07 22:15] LABS: BACTERIA,URINE 0 /HPF (0-FEW); CLARITY,URINE CLEAR; COLOR,URINE YELLOW; GLUCOSE,URINE NEG (NEG); NITRITE,URINE NEG (NEG); RBC,URINE 0 /HPF (0-2); UROBILINOGEN,URINE 0.2 mg/dL (0.2 mg/dL); WBC,URINE 0 /HPF (0-4)
[2021-12-07 22:16] LABS: SQUAMOUS EPITHELIAL CELL,UR MOD /LPF
== END 2021-12-07 22:11 | disposition home or self-care (01) ==
LOC: ER 18:35
DX: K59.00 Constipation, unspecified (principal); K62.5 Hemorrhage of anus and rectum; J45.909 Unspecified asthma, uncomplicated; E10.9 Type 1 diabetes mellitus without complications; Z88.2 Allergy status to sulfonamides; Z88.5 Allergy status to narcotic agent; Z91.018 Allergy to other foods; Z88.8 Allergy status to other drugs, medicaments and biological substances
CPT/HCPCS: 36415; 74177; 80053; 81001; 82947; 83690; 85025; 99284; Q9967

== ENCOUNTER → 2021-12-15 | Outpatient (CLI) | payer MEDICARE ==
[2021-12-07 19:07] VITALS: BP 115/78
--- NOTE | 2021-12-17 14:05 | RAD ---
INDICATION: 46 years of age asymptomatic female patient presents for screening mammography. No person al or family history of breast cancer. TECHNIQUE: Full field craniocaudal and mediolateral oblique images of both breasts were obtained usi ng digital technique without tomosynthesis and also analyzed with computer-aided detection software. COMPARISON: Prior mammographic imaging dating back to 12/29/2016. BREAST COMPOSITION: Category B: There are scattered fibroglandular densities. FINDINGS: No suspicious masses, microcalcifications or architectural distortion is present to suggest malignanc y in either breast. The visualized axillae are unremarkable. IMPRESSION: No mammographic evidence of malignancy. RECOMMENDATION: Annual screening mammography is recommended, unless clinically indicated sooner based on symptoms or change in physical exam. BIRADS 1: NEGATIVE This study was interpreted with the benefit of Computerized Aided Detection (CAD). Patient information is entered into the reminder system with a target due date for the next screening mammogram. Mammography is the most sensitive method for finding small breast cancers, but it does not detect the m all and is not a substitute for careful clinical examination. A negative mammogram does not negate a clinically suspicious finding and should not result in delay in biopsying a clinically suspicious a bnormality. "Our facility is accredited by the [employer] Mammography Program." Electronically signed by: Waqas Pizarro DO (12/17/2021 2:03 PM) [id number]
== END ==
LOC: MAMMO 13:54
PROVIDERS: ATTEND Family Medicine
DX: Z12.31 Encounter for screening mammogram for malignant neoplasm of breast (principal)
CPT/HCPCS: 77067